=== PATIENT | male | born 1950 | race American Indian/Alaskan Native ===

== ENCOUNTER 2018-04-27 17:29 | Emergency (ER) | payer MEDICARE ==
--- NOTE | 2018-04-27 21:42 | Emergency Department Report ---
ED Psych HPI - General Chief Complaint: Medical Clearance Stated Complaint: MH Time Seen by Provider: 04/27/18 21:37 Source: patient, EMS Mode of arrival: Ambulatory Limitations: Altered Mental Status - History of Present Illness Initial Comments: 67-year-old -Indian male with a past medical history of anxiety, depression, kidney chronic kidney disease with dialysis Parkinson's disease memory loss schizophrenia and hyperlipidemia. Patient is brought here by home health care case manager Miss Meraz phone #[phone] reporting that he will not sleep he is co nstantly pacing and going to other clients rooms. She reports that she's had to constantly keep an eye on him. She reports there is no suicidal or homicidal ideation that she has been able to evaluate. Caregiver Miss Meraz reports that he was seen at [facility] yesterday and was placed on Risperdal 50 mg and she reports it did not help at all. Patient's sister is Ms. Figueroa's sign bridge at [phone]. Caregiver reports that he is followed by mental health provider in via Dr. Rodas which she reports she has been trying to get in touch with him for the last 2 weeks. His phone number is [phone]. Patient denies any other complaints. MD Complaint: altered mental status History of same: Yes Quality: constant Improves With: none Worsens With: none Associated Symptoms: insomnia Treatments Prior to Arrival: none - Related Data Home Medications Medication Instructions Recorded Confirmed Last Taken Tamsulosin [Flomax] 0.4 mg PO QPM 01/21/15 03/16/18 02/07/15 amLODIPine [Norvasc] 5 mg PO DAILY 01/21/15 03/16/18 02/07/15 Aspirin [Adult Aspirin] 81 mg PO QDAY 03/16/18 03/16/18 Unknown Carbidopa/Levodopa 10-100 [Sinemet] 1 each PO TID 03/16/18 03/16/18 Unknown Furosemide [Lasix] 20 mg PO QDAY 03/16/18 03/16/18 Unknown Hydralazine HCl 50 mg PO BID 03/16/18 03/16/18 Unknown ISOSORBIDE MONOnitrate [Imdur ER] 30 mg PO DAILY 03/16/18 03/16/18 Unknown metFORMIN XR [Glucophage XR] 500 mg PO QDAY 03/16/18 03/16/18 Unknown Previous Rx's Medication Instructions Recorded Last Taken Type Nitrofurantoin Monohyd/M-Cryst 100 mg PO BID #14 capsule 03/17/18 Unknown Rx [Macrobid 100 mg Capsule] Allergies Allergy/AdvReac Type Severity Reaction Status Date / Time Penicillins Allergy Unknown Verified 03/16/18 17:02 ED Review of Systems ROS: Stated complaint: MH Other details as noted in HPI Comment: All other systems reviewed and negative Psychiatric: other (insomnia) ED Past Medical Hx - Past Medical History Hx Hypertension: Yes Hx Diabetes: Yes Hx Renal Disease: Yes (CKD, MWF Dialysis) Hx Psychiatric Treatment: Yes (anxiety, depression) Additional medical history: Parkinson's disease. Memory Loss. Schizophrenia. Hyperlipidemia - Social History Smoking Status: Never Smoker Substance Use Type: None - Medications Home Medications: Home Medications Medication Instructions Recorded Confirmed Last Taken Type Tamsulosin [Flomax] 0.4 mg PO QPM 01/21/15 03/16/18 02/07/15 History amLODIPine [Norvasc] 5 mg PO DAILY 01/21/15 03/16/18 02/07/15 History Aspirin [Adult Aspirin] 81 mg PO QDAY 03/16/18 03/16/18 Unknown History Carbidopa/Levodopa 10-100 [Sinemet] 1 each PO TID 03/16/18 03/16/18 Unknown History Furosemide [Lasix] 20 mg PO QDAY 03/16/18 03/16/18 Unknown History Hydralazine HCl 50 mg PO BID 03/16/18 03/16/18 Unknown History ISOSORBIDE MONOnitrate [Imdur ER] 30 mg PO DAILY 03/16/18 03/16/18 Unknown History metFORMIN XR [Glucophage XR] 500 mg PO QDAY 03/16/18 03/16/18 Unknown History Nitrofurantoin Monohyd/M-Cryst 100 mg PO BID #14 capsule 03/17/18 Unknown Rx [Macrobid 100 mg Capsule] ED Physical Exam - General Limitations: Altered Mental Status General appearance: alert, in no apparent distress - Head Head exam: Present: atraumatic, normocephalic - Eye Eye exam: Present: EOMI - ENT ENT exam: Present: mucous membranes moist - Neck Neck exam: Present: normal inspection - Respiratory Respiratory exam: Present: normal lung sounds bilaterally. Absent: respiratory distress - Cardiovascular Cardiovascular Exam: Present: regular rate, normal rhythm. Absent: systolic murmur, diastolic murmur, rubs, gallop - GI/Abdominal GI/Abdominal exam: Present: soft, normal bowel sounds - Extremities Exam Extremities exam: Present: full ROM - Neurological Exam Neurological exam: Present: altered, normal gait - Psychiatric Psychiatric exam: Present: flat affect - Skin Skin exam: Present: warm, dry, intact, normal color. Absent: rash ED Course Vital Signs 04/27/18 18:28 Temperature 98.5 F Pulse Rate 88 Respiratory 16 Rate Blood Pressure 131/69 O2 Sat by Pulse 98 Oximetry ED Medical Decision Making - Lab Data Result diagrams: 04/27/18 21:46 04/27/18 21:46 Lab Results 04/27/18 04/27/18 04/27/18 Range/Units 21:46 21:46 21:46 WBC 10.1 (4.5-11.0) K/mm3 RBC 3.84 (3.65-5.03) M/mm3 Hgb 10.8 L (11.8-15.2) gm/dl Hct 34.2 L (35.5-45.6) % MCV 89 (84-94) fl MCH 28 (28-32) pg MCHC 32 (32-34) % RDW 19.6 H (13.2-15.2) % Plt Count 308 (140-440) K/mm3 Lymph % (Auto) 17.8 (13.4-35.0) % [place] % (Auto) 9.1 H (0.0-7.3) % Eos % (Auto) 5.2 H (0.0-4.3) % Baso % (Auto) 1.4 (0.0-1.8) % Lymph # 1.8 (1.2-5.4) K/mm3 [place] # 0.9 H (0.0-0.8) K/mm3 Eos # 0.5 H (0.0-0.4) K/mm3 Baso # 0.1 (0.0-0.1) K/mm3 Seg Neutrophils % 66.5 (40.0-70.0) % Seg Neutrophils # 6.7 (1.8-7.7) K/mm3 Sodium 133 L (137-145) mmol/L Potassium 3.6 (3.6-5.0) mmol/L Chloride 93.7 L (98-107) mmol/L Carbon Dioxide 23 (22-30) mmol/L Anion Gap 20 mmol/L BUN 18 (9-20) mg/dL Creatinine 4.5 H (0.8-1.5) mg/dL Estimated GFR 16 ml/min BUN/Creatinine Ratio 4 % Glucose 165 H (75-100) mg/dL Calcium 9.3 (8.4-10.2) mg/dL Total Bilirubin 0.50 (0.1-1.2) mg/dL AST 20 (5-40) units/L ALT < 5 L (7-56) units/L Alkaline Phosphatase 57 (35-129) units/L Total Protein 8.3 H (6.3-8.2) g/dL Albumin 3.6 L (3.9-5) g/dL Albumin/Globulin Ratio 0.8 % Acetaminophen < 5.0 L (10.0-30.0) ug/mL Plasma/Serum Alcohol (0-0.07) % 04/27/18 Range/Units 21:46 WBC (4.5-11.0) K/mm3 RBC (3.65-5.03) M/mm3 Hgb (11.8-15.2) gm/dl Hct (35.5-45.6) % MCV (84-94) fl MCH (28-32) pg MCHC (32-34) % RDW (13.2-15.2) % Plt Count (140-440) K/mm3 Lymph % (Auto) (13.4-35.0) % [place] % (Auto) (0.0-7.3) % Eos % (Auto) (0.0-4.3) % Baso % (Auto) (0.0-1.8) % Lymph # (1.2-5.4) K/mm3 [place] # (0.0-0.8) K/mm3 Eos # (0.0-0.4) K/mm3 Baso # (0.0-0.1) K/mm3 Seg Neutrophils % (40.0-70.0) % Seg Neutrophils # (1.8-7.7) K/mm3 Sodium (137-145) mmol/L Potassium (3.6-5.0) mmol/L Chloride (98-107) mmol/L Carbon Dioxide (22-30) mmol/L Anion Gap mmol/L BUN (9-20) mg/dL Creatinine (0.8-1.5) mg/dL Estimated GFR ml/min BUN/Creatinine Ratio % Glucose (75-100) mg/dL Calcium (8.4-10.2) mg/dL Total Bilirubin (0.1-1.2) mg/dL AST (5-40) units/L ALT (7-56) units/L Alkaline Phosphatase (35-129) units/L Total Protein (6.3-8.2) g/dL Albumin (3.9-5) g/dL Albumin/Globulin Ratio % Acetaminophen (10.0-30.0) ug/mL Plasma/Serum Alcohol < 0.01 (0-0.07) % - Medical Decision Making Patient has been evaluated by this provider in fast track. Psychiatric protocol has been in place. I discussed with charge nurse Marisela Mdaera regarding patient needs to be evaluated in the main ER. Psychiatric protocol was in place. Mental health provider evaluated patient that the patient is safe to go home but needs close follow-up with mental health. Mental health provider discuss with his care provider Ms. Meraz and discuss that should he was sent home paperwork for referrals to mental health. Patient was not able to give any urine as he is not able to follow instructions very well. Discussed with Ms. Meraz to continue with all his chronic medication. Critical care attestation.: If time is entered above; I have spent that time in minutes in the direct care of this critically ill patient, excluding procedure time. ED Disposition Clinical Impression: Parkinsons disease, Memory loss Disposition: DC-01 TO HOME OR SELFCARE Is pt being admited?: No Does the pt Need Aspirin: No Condition: Stable Instructions: Insomnia (ED), Parkinson's Disease (ED), Self-Care Measures with a Chronic Disease (ED) Additional Instructions: Please continue with chronic medication as prescribed by your outpatient providers. It is very important for you to follow up mental health opiate m nichole. We have given a handout for referrals. Referrals: PRIMARY CARE, [Primary Care Provider] - 3-5 Days [facility] [Outside] - 3-5 Days [facility] [Outside] - 3-5 Days Your,Mental Health Provider [Other] - 3-5 Days
[2018-04-27 21:58] LABS: Basophils # (Auto) 0.1 K/mm3 (0.0-0.1); Basophils % (Auto) 1.4 % (0.0-1.8); Eosinophils # (Auto) 0.5 K/mm3 (0.0-0.4); Eosinophils % (Auto) 5.2 % (0.0-4.3); Hematocrit 34.2 % (35.5-45.6); Hemoglobin 10.8 gm/dl (11.8-15.2); Lymphocytes # (Auto) 1.8 K/mm3 (1.2-5.4); Lymphocytes % (Auto) 17.8 % (13.4-35.0); Mean Corpuscular HGB Conc 32 % (32-34); Mean Corpuscular Volume 89 fl (84-94); Monocytes # (Auto) 0.9 K/mm3 (0.0-0.8); Monocytes % (Auto) 9.1 % (0.0-7.3); Red Blood Count 3.84 M/mm3 (3.65-5.03); Red Cell Distribution Width 19.6 % (13.2-15.2)
[2018-04-27 22:00] LABS: Platelet Count 308 K/mm3 (140-440)
[2018-04-27 22:34] LABS: Albumin 3.6 g/dL (3.9-5); BUN/Creatinine Ratio 4; Blood Urea Nitrogen 18 mg/dL (9-20); Calcium 9.3 mg/dL (8.4-10.2); Hemolysis Index 67
[2018-04-27 22:39] LABS: Alanine Aminotransferase < 5 units/L (7-56)
[2018-04-28 08:38] VITALS: BP 118/77
== END 2018-04-28 12:00 | disposition home or self-care (01) ==
LOC: ED 17:29
DX: G20 Parkinson's disease (principal); R41.3 Other amnesia; F41.9 Anxiety disorder, unspecified; F32.9 Major depressive disorder, single episode, unspecified; E78.5 Hyperlipidemia, unspecified; G47.00 Insomnia, unspecified; F20.9 Schizophrenia, unspecified; I12.9 Hypertensive chronic kidney disease with stage 1 through stage 4 chronic kidney disease, or unspecified chronic kidney disease; E11.22 Type 2 diabetes mellitus with diabetic chronic kidney disease; N18.9 Chronic kidney disease, unspecified; Z99.2 Dependence on renal dialysis; Z88.0 Allergy status to penicillin; Z79.82 Long term (current) use of aspirin
CPT/HCPCS: 36415; 80053; 82962; 85025; 99283; G0480; 80320; 99284

== ENCOUNTER 2018-09-29 08:32 | Inpatient (IN) | payer MEDICARE ==
[2018-09-29 08:56] LABS: Basophils # (Auto) 0.1 K/mm3 (0.0-0.1); Basophils % (Auto) 0.9 % (0.0-1.8); Eosinophils % (Auto) 0.6 % (0.0-4.3); Hematocrit 32.2 % (35.5-45.6); Hemoglobin 10.3 gm/dl (11.8-15.2); Lymphocytes # (Auto) 1.1 K/mm3 (1.2-5.4); Lymphocytes % (Auto) 15.1 % (13.4-35.0); Mean Corpuscular HGB Conc 32 % (32-34); Mean Corpuscular Volume 88 fl (84-94); Monocytes # (Auto) 0.6 K/mm3 (0.0-0.8); Monocytes % (Auto) 7.8 % (0.0-7.3); Platelet Count 195 K/mm3 (140-440); Red Blood Count 3.65 M/mm3 (3.65-5.03); Red Cell Distribution Width 15.6 % (13.2-15.2)
[2018-09-29 09:07] LABS: Calcium 9.4 mg/dL (8.4-10.2)
[2018-09-29] MEDS ORDERED: NACL 0.9% 500 ML 500 ML IV ONE ×2 (09:08→10:24)
--- NOTE | 2018-09-29 09:20 | Emergency Department Report ---
ED Altered Mental Status HPI - General Chief Complaint: Altered Mental Status Stated Complaint: LATHARGIC/LOW BLOOD PRESSURE Time Seen by Provider: 09/29/18 09:08 Source: EMS Mode of arrival: Stretcher Limitations: Altered Mental Status - History of Present Illness Initial Comments: Mr. Salinas is a 68-year-old male with history of end-stage renal disease hemodialysis Friday, hypertension, diabetes mellitus, dementia, systolic heart failure, schizophrenia, dyslipidemia who presents from personal long term with altered mental status and lethargy. He was only oriented to name today. He was lethargic with hypotension noted per EMS blood pressure 70s over 40s. The caregiver called nurse informed us that he was normal at 0700 before going to a day care program today. He fell at the program. Hypotension was noted at the daycare program. Mr. Salnias currently uses his head to communicate yes or no. He is able to state his name full name Jose Salinas. He denies any physical complaints. PCP Dr. Delcid [place] [address], [place], [place] Complaint: altered mental status -: This morning Severity: severe Consistency of Symptoms: waxing and waning Associated Symptoms: denies other symptoms - Related Data Home Medications Medication Instructions Recorded Confirmed Last Taken Tamsulosin [Flomax] 0.4 mg PO QPM 01/21/15 03/16/18 02/07/15 amLODIPine [Norvasc] 5 mg PO DAILY 01/21/15 03/16/18 02/07/15 Aspirin [Adult Aspirin] 81 mg PO QDAY 03/16/18 03/16/18 Unknown Carbidopa/Levodopa 10-100 [Sinemet] 1 each PO TID 03/16/18 03/16/18 Unknown Furosemide [Lasix] 20 mg PO QDAY 03/16/18 03/16/18 Unknown Hydralazine HCl 50 mg PO BID 03/16/18 03/16/18 Unknown ISOSORBIDE MONOnitrate [Imdur ER] 30 mg PO DAILY 03/16/18 03/16/18 Unknown metFORMIN XR [Glucophage XR] 500 mg PO QDAY 03/16/18 03/16/18 Unknown Previous Rx's Medication Instructions Recorded Last Taken Type Nitrofurantoin Monohyd/M-Cryst 100 mg PO BID #14 capsule 03/17/18 Unknown Rx [Macrobid 100 mg Capsule] Allergies Allergy/AdvReac Type Severity Reaction Status Date / Time Penicillins Allergy Unknown Verified 03/16/18 17:02 ED Review of Systems ROS: Stated complaint: LATHARGIC/LOW BLOOD PRESSURE Other details as noted in HPI Comment: Unobtainable due to pts medical conditions (altered mental status d ementia but says no to all questions) ED Past Medical Hx - Past Medical History Previous Medical History?: Yes Hx Hypertension: Yes Hx Diabetes: Yes Hx Renal Disease: Yes (CKD, MWF Dialysis) Hx Psychiatric Treatment: Yes (anxiety, depression) Hx Dementia: Yes Additional medical history: Parkinson's disease. Memory Loss. Schizophrenia. Hyperlipidemia - Social History Smoking Status: Unknown if ever smoked - Medications Home Medications: Home Medications Medication Instructions Recorded Confirmed Last Taken Type Tamsulosin [Flomax] 0.4 mg PO QPM 01/21/15 03/16/18 02/07/15 History amLODIPine [Norvasc] 5 mg PO DAILY 01/21/15 03/16/18 02/07/15 History Aspirin [Adult Aspirin] 81 mg PO QDAY 03/16/18 03/16/18 Unknown History Carbidopa/Levodopa 10-100 [Sinemet] 1 each PO TID 03/16/18 03/16/18 Unknown History Furosemide [Lasix] 20 mg PO QDAY 03/16/18 03/16/18 Unknown History Hydralazine HCl 50 mg PO BID 03/16/18 03/16/18 Unknown History ISOSORBIDE MONOnitrate [Imdur ER] 30 mg PO DAILY 03/16/18 03/16/18 Unknown History metFORMIN XR [Glucophage XR] 500 mg PO QDAY 03/16/18 03/16/18 Unknown History Nitrofurantoin Monohyd/M-Cryst 100 mg PO BID #14 capsule 03/17/18 Unknown Rx [Macrobid 100 mg Capsule] ED Physical Exam - General Limitations: Altered Mental Status General appearance: alert, in no apparent distress, lethargic, other (states name, nods yes or no) - Head Head exam: Present: atraumatic, normocephalic - Eye Eye exam: Present: normal appearance - ENT ENT exam: Present: mucous membranes dry - Neck Neck exam: Present: normal inspection, full ROM - Respiratory Respiratory exam: Present: normal lung sounds bilaterally. Absent: respiratory distress, wheezes, rales, rhonchi - Cardiovascular Cardiovascular Exam: Present: regular rate, normal rhythm, normal heart sounds. Absent: rubs, gallop - GI/Abdominal GI/Abdominal exam: Present: soft, normal bowel sounds. Absent: distended, tenderness, guarding, rebound - Rectal Rectal exam: Present: deferred - Neurological Exam Neurological exam: Present: alert, other (oriented to name) - Expanded Neurological Exam Expanded Patient oriented to: Present: person Speech: Present: expressive aphasia Cranial nerves: EOM's Intact: Normal, Gag Reflex: Normal Sensory exam: Upper Extremity Light Touch: Normal Motor strength exam: RUE: 5, LUE: 5, RLE: 5, LLE: 5 Best Eye Response ([place]): (4) open spontaneously Best Motor Response ([place]): (6) obeys commands Best Verbal Response ([place]): (4) confused conversation [place] Total: 14 - Psychiatric Psychiatric exam: Present: normal mood, flat affect - Skin Skin exam: Present: warm, dry, intact, normal color. Absent: rash ED Course Vital Signs 09/29/18 09/29/18 09/29/18 08:36 08:38 08:45 Temperature 97.5 F L Pulse Rate 87 84 Respiratory 10 L 27 H Rate Blood Pressure 110/65 O2 Sat by Pulse 97 62 L Oximetry 09/29/18 09/29/18 09/29/18 09:00 09:30 10:00 Temperature Pulse Rate 76 78 73 Respiratory 15 14 13 Rate Blood Pressure 96/58 92/58 94/56 O2 Sat by Pulse 99 99 100 Oximetry 09/29/18 09/29/18 10:55 11:00 Temperature Pulse Rate 60 77 Respiratory 15 Rate Blood Pressure 105/59 94/64 O2 Sat by Pulse Oximetry - Lab Data Result diagrams: 09/29/18 08:49 09/29/18 09:44 Lab Results 09/29/18 09/29/18 09/29/18 Range/Units 08:49 08:49 08:51 WBC 7.6 (4.5-11.0) K/mm3 RBC 3.65 (3.65-5.03) M/mm3 Hgb 10.3 L (11.8-15.2) gm/dl Hct 32.2 L (35.5-45.6) % MCV 88 (84-94) fl MCH 28 (28-32) pg MCHC 32 (32-34) % RDW 15.6 H (13.2-15.2) % Plt Count 195 (140-440) K/mm3 Lymph % (Auto) 15.1 (13.4-35.0) % [place] % (Auto) 7.8 H (0.0-7.3) % Eos % (Auto) 0.6 (0.0-4.3) % Baso % (Auto) 0.9 (0.0-1.8) % Lymph # 1.1 L (1.2-5.4) K/mm3 [place] # 0.6 (0.0-0.8) K/mm3 Eos # 0.0 (0.0-0.4) K/mm3 Baso # 0.1 (0.0-0.1) K/mm3 Seg Neutrophils % 75.6 H (40.0-70.0) % Seg Neutrophils # 5.7 (1.8-7.7) K/mm3 Sodium 137 (137-145) mmol/L Potassium 4.3 (3.6-5.0) mmol/L Chloride 94.4 L (98-107) mmol/L Carbon Dioxide 26 (22-30) mmol/L Anion Gap 21 mmol/L BUN 33 H (9-20) mg/dL Creatinine 6.0 H (0.8-1.5) mg/dL Estimated GFR 11 ml/min BUN/Creatinine Ratio 6 % Glucose 148 H (75-100) mg/dL POC Glucose 132 H (70-105) Lactic Acid (0.7-2.0) mmol/L Calcium 9.4 (8.4-10.2) mg/dL Total Bilirubin (0.1-1.2) mg/dL AST (5-40) units/L ALT (7-56) units/L Alkaline Phosphatase (35-129) units/L Troponin T (0.00-0.029) ng/mL Total Protein (6.3-8.2) g/dL Albumin (3.9-5) g/dL Albumin/Globulin Ratio % TSH (0.270-4.200) mlU/mL 06/18/19 06/18/19 06/18/19 Range/Units 09:44 09:44 10:58 WBC (4.5-11.0) K/mm3 RBC (3.65-5.03) M/mm3 Hgb (11.8-15.2) gm/dl Hct (35.5-45.6) % MCV (84-94) fl MCH (28-32) pg MCHC (32-34) % RDW (13.2-15.2) % Plt Count (140-440) K/mm3 Lymph % (Auto) (13.4-35.0) % [place] % (Auto) (0.0-7.3) % Eos % (Auto) (0.0-4.3) % Baso % (Auto) (0.0-1.8) % Lymph # (1.2-5.4) K/mm3 [place] # (0.0-0.8) K/mm3 Eos # (0.0-0.4) K/mm3 Baso # (0.0-0.1) K/mm3 Seg Neutrophils % (40.0-70.0) % Seg Neutrophils # (1.8-7.7) K/mm3 Sodium 138 (137-145) mmol/L Potassium 4.1 (3.6-5.0) mmol/L Chloride 95.3 L (98-107) mmol/L Carbon Dioxide 24 (22-30) mmol/L Anion Gap 23 mmol/L BUN 33 H (9-20) mg/dL Creatinine 5.8 H (0.8-1.5) mg/dL Estimated GFR 12 ml/min BUN/Creatinine Ratio 6 % Glucose 131 H (75-100) mg/dL POC Glucose (70-105) Lactic Acid 2.40 H* (0.7-2.0) mmol/L Calcium 9.3 (8.4-10.2) mg/dL Total Bilirubin 0.70 (0.1-1.2) mg/dL AST 24 (5-40) units/L ALT < 5 L (7-56) units/L Alkaline Phosphatase 58 (35-129) units/L Troponin T 0.098 H (0.00-0.029) ng/mL Total Protein 8.6 H (6.3-8.2) g/dL Albumin 3.8 L (3.9-5) g/dL Albumin/Globulin Ratio 0.8 % TSH 6.680 H (0.270-4.200) mlU/mL 09/29/18 11:38 EKG obtained 849 Normal sinus rhythm rate 75 beats a minute normal axis interval +PVCs +LVH no significant ST elevation - Radiology Data Radiology results: report reviewed CT head fluid level in the left frontal sinus may reflect acute sinusitis AP Portable chest unremarkable - Medical Decision Making Mr. Salinas presents with lethargy and hypotension which led to fall at adult day care program. DDX: polypharmacy, inadvertent medication administration, sepsis Antibiotics provided in the ED. [facility] Critical care attestation.: If time is entered above; I have spent that time in minutes in the direct care of this critically ill patient, excluding procedure time. ED Disposition Clinical Impression: Acute metabolic encephalopathy Disposition: OP ADMIT IP TO THIS HOSP Is pt being admited?: Yes Does the pt Need Aspirin: No Condition: Stable
--- NOTE | 2018-09-29 09:29 | XRay Report ---
AP CHEST: HISTORY: Altered mental status, hypotension AP view of the chest demonstrates a normal mediastinal and cardiac contour with clear lungs and normal bony and soft tissue structures. IMPRESSION: Unremarkable AP chest.
[2018-09-29 10:39] LABS: Alanine Aminotransferase < 5 units/L (7-56); Albumin 3.8 g/dL (3.9-5); BUN/Creatinine Ratio 6; Blood Urea Nitrogen 33 mg/dL (9-20); Calcium 9.3 mg/dL (8.4-10.2); Hemolysis Index 9
[2018-09-29] MEDS: AZACTAM/NS 1 GM/50 ML 1 GM/50 ML VIAL IV SCH ×2 (11:03→18:12)
--- NOTE | 2018-09-29 11:26 | Cat Scan Report ---
PROCEDURE: CT HEAD/BRAIN WO CON TECHNIQUE: Computerized tomography of the head was performed without contrast material. CT DOSE LENGTH PRODUCT: 920.5 mGycm HISTORY: AMS COMPARISONS: None . FINDINGS: Cerebrovascular atherosclerotic calcification is present in the skull base arteries. Surgical graft left orbit floor. Slight mucosal thickening left maxillary sinus. Moderate mucosal thickening left ethmoid sinus. Mucosal thickening with fluid level left frontal sinus. Mastoid air cells and middle ear cavities are clear. Chronic appearing lacunar infarct right caudate head and left lateral basal ganglia. Bone windows demonstrate no acute fracture. There is ventricular and sulcal prominence compatible with age-appropriate global cerebrocortical atr ophy. The brain contains no mass, mass effect, hemorrhage, or acute infarct. There is no extra-axial intracranial bleed, brain bleed, or midline shift. IMPRESSION: No acute CVA, intracranial bleed, or brain mass Fluid level left frontal sinus may reflect acute sinusitis Chronic appearing lacunar infarcts right caudate head and left lateral basal ganglia Prior left orbital floor surgery This document is electronically signed by Don Gordillo MD., September 29 2018 11:24:35 AM ET
[2018-09-29] MEDS ORDERED: VANCOMYCIN 1,500 MG in NACL 0.9% 500 ML 500 ML IV ONE (11:30)
--- NOTE | 2018-09-29 11:40 | Cat Scan Report ---
PROCEDURE: CT ABDOMEN PELVIS WO CON TECHNIQUE: CT examination of the abdomen without IV contrast CT examination of the pelvis without IV contrast HISTORY: hypotension COMPARISONS: None FINDINGS: Patient arm in the diagnostic [id number] degrades image quality and limits the examination. Minimal scar versus atelectasis both lung bases posteriorly. Degenerative change in the regional skel eton. No acute fracture. Coronary artery calcification. Cardiac size slightly enlarged. Normal noncontrast appearance of the liver, gallbladder, adrenals, pancreas, and spleen. Normal calib er abdominal aorta with moderate calcified atherosclerotic plaque. Normal caliber IVC. A nonspecific, smoothly marginated, low density, simple appearing left renal lesion is statistically most likely a cyst. Nonspecific slight bilateral hydronephrosis. No evidence of renal or ureteral calculus. Diffuse mural thickening in the urinary bladder. Prominent prostate with mass effect on urinary bladder base. Prom inent prostate median lobe. Normal-appearing seminal vesicles. Small fat-containing umbilical hernia. No evidence of inguinal hernia. No retroperitoneal adenopathy. No evidence of mesenteric mass. Normal-appearing stomach and duodenum. No small bowel distention in the abdomen and pelvis. No pelvic free fluid. No gross ascites or free air. Normal-appearing terminal ileum and appendix. Prominent stool from cecum to rectum may reflect constipation. IMPRESSION: Prominent stool from cecum to rectum may reflect constipation Prominent prostate with mass effect on urinary bladder base. This may account for urinary bladder dif fuse wall thickening and mild bilateral hydronephrosis. Differential for urinary bladder wall thicken ing is edema, inflammation, or cystitis. Neoplastic infiltration considered less likely given nonfoca l thickening. Minimal scar versus atelectasis both lung bases posteriorly Slight cardiomegaly with coronary artery calcification This document is electronically signed by Don Gordillo MD., September 29 2018 11:37:53 AM ET
[2018-09-29 11:45] LABS: Bilirubin,Urine NEG (Negative); Blood,Urine SM (Negative); Color,Urine Yellow (Yellow); Mucus,Urine FEW /HPF; Urobilinogen,Urine < 2.0 mg/dL (<2.0)
[2018-09-29] MEDS ORDERED: NARCAN 0.4 MG/1 ML IV STA (13:17)
[2018-09-29] MEDS ORDERED: NARCAN 0.4 MG/1 ML ONE (14:19)
[2018-09-29] MEDS ORDERED: TYLENOL PO PRN (20:59)
[2018-09-29] MEDS ORDERED: SODIUM CHLORIDE FLUSH SYRINGE 10 ML IV PRN (20:59)
[2018-09-29] MEDS ORDERED: ZOFRAN IV PRN (20:59)
[2018-09-29] MEDS ORDERED: DILAUDID IV PRN (20:59)
[2018-09-29] MEDS ORDERED: IMDUR PO SCH (21:00)
[2018-09-29] MEDS ORDERED: LASIX PO SCH (21:00)
[2018-09-29] MEDS: ATARAX PO SCH (21:49)
[2018-09-29] MEDS: HEPARIN SUB-Q SCH (21:49)
[2018-09-29] MEDS: FLOMAX PO SCH (21:49)
[2018-09-29] MEDS: SODIUM CHLORIDE FLUSH SYRINGE 10 ML IV SCH (21:50)
--- NOTE | 2018-09-29 23:52 | Consultation ---
History of Present Illness - Reason for Consult Consult date: 09/29/18 end stage renal disease - History of Present Illness The patient is a 68 YO male with history significant for HTN, DM, HLD, ESRD on hemodialysis (MWF), Dementia, Systolic heart failure and Schizophrenia who presented to [facility] ED from personal residential with altered mental status and lethargy. Patient is very poor historian and no family member at the bedside. He was lethargic with hypotension noted per EMS with blood pressure of 70s/40s. He had a fall at the daycare program. He denies any physical complaints. His N ephrologist is . Nephrology was consulted to manage ESRD. Past History Past Medical History: diabetes, dialysis, ESRD, heart failure, hypertension, hy perlipidemia, other (BPH) Medications and Allergies Allergies Allergy/AdvReac Type Severity Reaction Status Date / Time Penicillins Allergy Unknown Verified 03/16/18 17:02 Home Medications Medication Instructions Recorded Confirmed Last Taken Type Tamsulosin [Flomax] 0.4 mg PO DAILY 01/21/15 09/29/18 02/07/15 History Carbidopa/Levodopa 10-100 [Sinemet] 1 each PO TIDAC 03/16/18 09/29/18 Unknown History Furosemide [Lasix] 20 mg PO QDAY 03/16/18 09/29/18 Unknown History ISOSORBIDE MONOnitrate [Imdur ER] 30 mg PO DAILY 03/16/18 09/29/18 Unknown History Hydroxyzine HCl [hydrOXYzine] 50 mg PO BID 09/29/18 09/29/18 Unknown History Levothyroxine [Synthroid] 25 mcg PO QDAY 09/29/18 09/29/18 Unknown History OLANZapine [Zyprexa] 20 mg PO DAILY 09/29/18 09/29/18 Unknown History clonazePAM [ Klonopin] 0.5 mg PO DAILY 09/29/18 09/29/18 Unknown History Active Meds: Active Medications Acetaminophen (Tylenol) 650 mg PO Q4H PRN PRN Reason: Pain MILD(1-3)/Fever >100.5/[place] Carbidopa/Levodopa (Sinemet) 1 each PO TIDAC [facility] Clonazepam (Klonopin) 0.5 mg PO DAILY [facility] Last Admin: 09/29/18 21:49 Dose: 0.5 mg Documented by: Furosemide (Lasix) 20 mg PO QDAY [facility] Last Admin: 09/29/18 21:49 Dose: 20 mg Documented by: Heparin Sodium (Porcine) (Heparin) 5,000 unit SUB-Q Q12HR [facility] Last Admin: 09/29/18 21:49 Dose: 5,000 unit Documented by: Hydromorphone HCl (Dilaudid) 0.25 mg IV Q3H PRN PRN Reason: Pain, Moderate (4-6) Hydroxyzine HCl (Atarax) 50 mg PO BID [facility] Last Admin: 09/29/18 21:49 Dose: 50 mg Documented by: Aztreonam (Azactam/Ns 1 Gm/50 Ml) 1 gm in 50 mls @ 50 mls/hr IV Q8H [facility]; Protocol Last Admin: 09/29/18 18:12 Dose: 50 mls/hr Documented by: Isosorbide Mononitrate (Imdur) 30 mg PO DAILY [facility] Last Admin: 09/29/18 21:48 Dose: 30 mg Documented by: Levothyroxine Sodium (Synthroid) 25 mcg PO QDAY@0600 [facility] Olanzapine (Zyprexa) 20 mg PO DAILY [facility] Last Admin: 09/29/18 21:48 Dose: 20 mg Documented by: Ondansetron HCl (Zofran) 4 mg IV Q8H PRN PRN Reason: Nausea And Vomiting Sodium Chloride (Sodium Chloride Flush Syringe 10 Ml) 10 ml IV BID [facility] Last Admin: 09/29/18 21:50 Dose: 10 ml Documented by: Sodium Chloride (Sodium Chloride Flush Syringe 10 Ml) 10 ml IV PRN PRN PRN Reason: LINE FLUSH Tamsulosin HCl (Flomax) 0.4 mg PO DAILY [facility] Last Admin: 09/29/18 21:49 Dose: 0.4 mg Documented by: Review of Systems ROS unobtainable: due to mental status Exam - Vital Signs Vital signs: Vital Signs Pulse Resp BP Pulse Ox 87 10 L 110/65 97 09/29/18 08:36 09/29/18 08:36 09/29/18 08:36 09/29/18 08:36 - General Appearance General appearance: well-developed, well-nourished, appears stated age, other (not in distress) EENT: ATNC, PERRL, mucous membranes moist Neck: Present: trachea midline Respiratory: Clear to Ascultation Heart: regular, S1S2, no murmurs Gastrointestinal: Present: normoactive bowel sounds. Absent: tenderness, distended Integumentary: no rash Neurologic: confused, disoriented, other (able to tell his name) Musculoskeletal: Present: other (no edema, L arm AVF) Results - Lab Results 09/29/18 08:49 09/29/18 09:44 Most recent lab results Calcium 9.3 mg/dL (8.4-10.2) 09/29/18 09:44 Assessment and Plan 1. ESRD: Continue hemodialysis three times a week, MWF schedule. HD tomorrow. 2. Hypotension: BP is improving. Monitor. 3. Suspected sepsis. 4. Anemia: Epogen with HD. 5. Encephalopathy. 6. DM type 2. 7. Parkinson's disease.
[2018-09-30] MEDS: AZACTAM/NS 1 GM/50 ML 1 GM/50 ML VIAL IV SCH ×2 (03:14→10:12)
--- NOTE | 2018-09-30 05:51 | Event Note ---
Date: 09/29/18 See H/p in reports AMS Hypotension ESRD on HD Parkinsonism
[2018-09-30] MEDS ORDERED: SYNTHROID PO SCH (06:00)
--- NOTE | 2018-09-30 06:21 | History and Physical Report ---
CHIEF COMPLAINT: Altered sensorium since a.m. HISTORY OF PRESENT ILLNESS: A 68-year-old male with history of end-stage renal disease, hypertension and parkinsonism and diabetes, including systolic heart failure and schizophrenia sent from personal shelter for altered sensorium and low blood pressure. No fever. The patient was having low blood pressure and had a fall. The fall was secondary to low blood pressure. The patient was sent by EMS to the Emergency Room for evaluation. No fever. The patient gets hemodialysis on Friday, Friday, Fridays. Follows with Dr. Del Rio. PAST MEDICAL HISTORY: As mentioned, hypertension, BPH, parkinsonism, coronary artery disease and type 2 diabetes. PAST SURGICAL HISTORY: AV graft. SOCIAL HISTORY: Lives in a personal shelter. Does not smoke. FAMILY HISTORY: Hypertension. CURRENT MEDICATIONS: Amlodipine 5 mg once a day, Sinemet 1 tablet 3 times a day, Lasix 20 mg once a day, isosorbide 30 mg once a day, metformin 500 once a day. REVIEW OF SYSTEMS: Significant for low blood pressure and altered sensorium. No fever. Otherwise, 14-point review of systems negative. PHYSICAL EXAMINATION: GENERAL: Elderly male, lethargic. VITAL SIGNS: Initial blood pressure was in the 70s, but in the Emergency Room, the blood pressure came up to 96/58. Temperature is 97.5, pulse is 87, respiratory rate is 16. HEENT: Unremarkable. Pupils equal and reactive. NECK: Supple, no lymphadenopathy, no thyromegaly. LUNGS: Clear to auscultation and percussion. Good air entry. CARDIOVASCULAR: S1, S2 heard. No gallop, no murmur, no rub. Apical impulse in left fifth intercostal space and midclavicular line. ABDOMEN: Soft and benign. No hepatosplenomegaly. No guarding, no rigidity. Hernial orifices are normal. EXTREMITIES: Good pedal pulses. No pedal edema. CENTRAL NERVOUS SYSTEM: Lethargic. Responds to name, not to place and time. No focal deficits. SKIN: Normal. LABORATORY DATA: Significant for white count of 7600, H and H of 10.3 and 32.2, platelet count is 195,000. Sodium is 138, potassium is 4.1, chloride is 95.3, BUN and creatinine is 33 and 5.8, glucose is 131. A1c is 4.8. Troponin is 0.098. Total protein is 8.6, albumin is 3.8. TSH is 6.68. Urine is normal. IMAGING STUDIES: EKG shows normal sinus rhythm, 75 beats per minute, PVCs, LVH. No significant ST elevation. Chest x-ray shows no acute findings. CT head shows no acute findings. CT abdomen and pelvis shows prominent stool from cecum to rectum, may reflect constipation. ASSESSMENT AND PLAN: 1. Acute encephalopathy secondary to hypotension and uremia. The patient to get hemodialysis today or tomorrow. Hold Lasix and isosorbide because of the low blood pressure for the time being. No signs of sepsis or infection. 2. Hypertension. We will hold antihypertensives. 3. Parkinsonism. Continue Sinemet. 4. Type 2 diabetes. Continue coverage. The patient's A1c is 4.8, which shows good control of blood pressure. 5. Hypothyroidism. Continue levothyroxine. TSH slightly high. We will adjust the dosage to 50 mcg of levothyroxine from 25 mcg. 6. End-stage renal disease, on hemodialysis. Nephrology consulted. 7. Possible sepsis. The patient started on aztreonam 1 g IV piggyback q.8. Antibiotics may be deescalated if no signs of infection are found, if blood cultures are negative. 8. Deep venous thrombosis prophylaxis, heparin 5000 q.12 and gastrointestinal prophylaxis. In summary, the patient has hypertension, acute encephalopathy, end-stage renal disease, hypothyroidism and parkinsonism. JOB# [id number] MARY KATE/PANCHO CALDERA
[2018-09-30 06:36] LABS: Basophils # (Auto) 0.1 K/mm3 (0.0-0.1); Basophils % (Auto) 1.2 % (0.0-1.8); Eosinophils # (Auto) 0.1 K/mm3 (0.0-0.4); Eosinophils % (Auto) 1.2 % (0.0-4.3); Hematocrit 30.1 % (35.5-45.6); Hemoglobin 9.5 gm/dl (11.8-15.2); Mean Corpuscular HGB Conc 32 % (32-34); Mean Corpuscular Volume 88 fl (84-94); Monocytes # (Auto) 0.4 K/mm3 (0.0-0.8); Monocytes % (Auto) 8.5 % (0.0-7.3); Platelet Count 172 K/mm3 (140-440); Red Blood Count 3.42 M/mm3 (3.65-5.03); Red Cell Distribution Width 15.5 % (13.2-15.2)
[2018-09-30 06:51] LABS: Albumin 3.1 g/dL (3.9-5); BUN/Creatinine Ratio 5; Blood Urea Nitrogen 38 mg/dL (9-20); Calcium 9.3 mg/dL (8.4-10.2); Hemolysis Index 27
[2018-09-30 06:52] LABS: Alanine Aminotransferase < 5 units/L (7-56)
[2018-09-30] MEDS: HumaLOG SUB-Q SCH ×4 (08:33→22:00)
[2018-09-30] MEDS: SINEMET PO SCH ×3 (08:55→17:23)
[2018-09-30] MEDS: HEPARIN SUB-Q SCH ×2 (09:02→21:52)
[2018-09-30] MEDS: ATARAX PO SCH (09:03)
[2018-09-30] MEDS: FLOMAX PO SCH (09:03)
[2018-09-30] MEDS: SODIUM CHLORIDE FLUSH SYRINGE 10 ML IV SCH ×2 (09:12→22:03)
[2018-09-30] MEDS ORDERED: NACL 0.9% 100 ML IV PRN (10:33)
[2018-09-30] MEDS ORDERED: PROCRIT SUB-Q PRN (10:33)
[2018-09-30] MEDS ORDERED: HEPARIN 10,000 UNITS/10 ML IV PRN ×2 (10:33)
[2018-09-30 14:44] LABS: Hepatitis C Virus Antibody Non-Reactive (NonReactive)
--- NOTE | 2018-09-30 14:59 | Progress Note ---
Assessment and Plan Assessment and plan: Patient is a 68 yo man with from [facility] with history of ESRD on HD MWF, hypertension, DM type 2, Dementia, systolic heart failure, Schizophrenia and dyslipidemia who presented with AMS, lethargy and hypotension * CT abd/pelvis with contrast Impression: Prominent stool from cecum to rectum may reflect constipation * CT head without contrast Impression: no acute CVA, left frontal sinus may reflect acute sinusitis, chronic appearing lacunar infarcts right caudate head and left lateral basal ganglia, prior left orbital floor surgery, * pCXR unremarkable Hypotension; adjust with HD ESRD on HD: Nephrology consulted Hypothyroidism, worse: d/w Ms. Clemens admissions specialist, and will increase the dose of Levothyroxine Constipation: give Miralax daily, add dulcolax suppository x 1 Acute metabolic encephalopathy Prelim GPC in clusters 1 out of 2 bottle: stop Aztreonam and start empiric give iv vancomycin which he received yesterday in ED. Acute sinusitis: add Azithromycin +iv vancomycin, PCN allergy History Interval history: Patient was seen and examined. Follow-up on current diagnosis of AMS. No overnight events reported to me. Imaging, nursing note, chart, labs and old chart reviewed. Discussed with caregiver over the phone and relative at bedside. Gen: WDWN, NAD, Awake, Alert, Orientated HEENT: NCAT, EOMI, PERRL, OP Clear Neck: supple, no adenopathy, no thyromegaly, no JVD CVS/Heart: RRR, normal S1S2, pulses present bilaterally Chest/Lungs: CTA B, Symmetrical chest expansion, good air entry bilaterally GI/Abdomen: soft, NTND, good bowel sounds, no guarding or rebound /Bladder: no suprapubic tenderness, no CVA or paraspinal tenderness Extermity/Skin: no c/c/e, no obvious rash MSK: FROM x 4 Neuro: CN 2-12 grossly intact, no new focal deficits Psych: calm Hospitalist Physical - Constitutional Vitals: Temp Pulse Resp BP Pulse Ox 98.1 F 84 18 125/72 99 09/30/18 11:00 09/30/18 14:29 09/30/18 11:00 09/30/18 13:30 09/30/18 04:52 Results - Labs CBC & Chem 7: 09/30/18 05:07 09/30/18 05:07 Labs: Laboratory Last Values WBC 4.8 K/mm3 (4.5-11.0) 09/30/18 05:07 RBC 3.42 M/mm3 (3.65-5.03) L 09/30/18 05:07 Hgb 9.5 gm/dl (11.8-15.2) L 09/30/18 05:07 Hct 30.1 % (35.5-45.6) L 09/30/18 05:07 MCV 88 fl (84-94) 09/30/18 05:07 MCH 28 pg (28-32) 09/30/18 05:07 MCHC 32 % (32-34) 09/30/18 05:07 RDW 15.5 % (13.2-15.2) H 09/30/18 05:07 Plt Count 172 K/mm3 (140-440) 09/30/18 05:07 Lymph % (Auto) 21.0 % (13.4-35.0) 09/30/18 05:07 [place] % (Auto) 8.5 % (0.0-7.3) H 09/30/18 05:07 Eos % (Auto) 1.2 % (0.0-4.3) 09/30/18 05:07 Baso % (Auto) 1.2 % (0.0-1.8) 09/30/18 05:07 Lymph # 1.0 K/mm3 (1.2-5.4) L 09/30/18 05:07 [place] # 0.4 K/mm3 (0.0-0.8) 09/30/18 05:07 Eos # 0.1 K/mm3 (0.0-0.4) 09/30/18 05:07 Baso # 0.1 K/mm3 (0.0-0.1) 09/30/18 05:07 Seg Neutrophils % 68.1 % (40.0-70.0) 09/30/18 05:07 Seg Neutrophils # 3.3 K/mm3 (1.8-7.7) 09/30/18 05:07 Sodium 140 mmol/L (137-145) 09/30/18 05:07 Potassium 4.7 mmol/L (3.6-5.0) 09/30/18 05:07 Chloride 99.8 mmol/L (98-107) 09/30/18 05:07 Carbon Dioxide 22 mmol/L (22-30) 09/30/18 05:07 23 mmol/L 09/30/18 05:07 BUN 38 mg/dL (9-20) H 09/30/18 05:07 7.1 mg/dL (0.8-1.5) H 09/30/18 05:07 Estimated GFR 9 ml/min 09/30/18 05:07 5 % 09/30/18 05:07 Glucose 149 mg/dL (75-100) H 09/30/18 05:07 POC Glucose 132 (70-105) H 09/29/18 08:51 4.8 % (4-6) 09/29/18 08:49 Lactic Acid 1.90 mmol/L (0.7-2.0) 09/29/18 11:50 Calcium 9.3 mg/dL (8.4-10.2) 09/30/18 05:07 0.40 mg/dL (0.1-1.2) 09/30/18 05:07 AST 21 units/L (5-40) 09/30/18 05:07 ALT < 5 units/L (7-56) L 09/30/18 05:07 48 units/L (35-129) 09/30/18 05:07 0.098 ng/mL (0.00-0.029) H 09/29/18 09:44 7.0 g/dL (6.3-8.2) 09/30/18 05:07 3.1 g/dL (3.9-5) L 09/30/18 05:07 0.8 % 09/30/18 05:07 TSH 6.680 mlU/mL (0.270-4.200) H 09/29/18 10:58 Yellow (Yellow) 09/29/18 11:13 Clear (Clear) 09/29/18 11:13 6.0 (5.0-7.0) 09/29/18 11:13 Ur Specific [place] 1.013 (1.003-1.030) 09/29/18 11:13 100 mg/dl mg/dL (Negative) 09/29/18 11:13 Neg mg/dL (Negative) 09/29/18 11:13 Neg mg/dL (Negative) 09/29/18 11:13 Sm (Negative) 09/29/18 11:13 Neg (Negative) 09/29/18 11:13 Neg (Negative) 09/29/18 11:13 < 2.0 mg/dL (<2.0) 09/29/18 11:13 Ur Leukocyte Esterase Neg (Negative) 09/29/18 11:13 1.0 /HPF (0.0-6.0) 09/29/18 11:13 13.0 /HPF (0.0-6.0) 09/29/18 11:13 U Epithel Cells (Auto) < 1.0 /HPF (0-13.0) 09/29/18 11:13 Few /HPF 09/29/18 11:13 Hepatitis A IgM Ab Non-reactive (NonReactive) 09/30/18 13:16 Hep B Core IgM Ab Non-reactive (NonReactive) 09/30/18 13:16 Non-reactive (NonReactive) 09/30/18 13:16 Active Medications - Current Medications Current Medications: Generic Name Dose Route Start Last Admin Trade Name Freq PRN Reason Stop Dose Admin Acetaminophen 650 mg 09/29/18 20:59 Tylenol PO Q4H PRN Pain MILD(1-3)/Fever >100.5/[place] Carbidopa/Levodopa 1 each 09/30/18 07:30 09/30/18 08:55 Sinemet PO 1 each TIDAC P[facility] Administration Clonazepam 0.5 mg 09/29/18 21:00 09/30/18 09:03 Klonopin PO 0.5 mg DAILY [facility] Administration Epoetin Scott 10,000 unit 09/30/18 10:33 Procrit SUB-Q YAS PRN hemodialysis Heparin Sodium (Porcine) 5,000 unit 09/29/18 22:00 09/30/18 09:02 Heparin SUB-Q 5,000 unit Q12HR [facility] Administration Heparin Sodium (Porcine) 2,000 unit 09/30/18 10:33 Heparin 10,000 Units/10 Ml IV YAS PRN hemodialysis Heparin Sodium (Porcine) 1,000 unit 09/30/18 10:33 Heparin 10,000 Units/10 Ml IV YAS PRN hemodialysis Hydroxyzine HCl 50 mg 09/29/18 22:00 09/30/18 09:03 Atarax PO 50 mg BID [facility] Administration Sodium Chloride 100 mls @ 999 mls/hr 09/30/18 10:33 Nacl 0.9% IV YAS PRN Hypotension Insulin Human Lispro 0 unit 09/30/18 07:30 09/30/18 14:40 Humalog SUB-Q Not Given ACHS [facility] Protocol Levothyroxine Sodium 50 mcg 09/30/18 06:05 Synthroid PO QDAY@0600 [facility] Levothyroxine Sodium 25 mcg 10/01/18 06:00 Synthroid PO 10/01/18 08:00 ONCE NR Olanzapine 20 mg 09/29/18 20:45 09/30/18 09:02 Zyprexa PO 20 mg DAILY [facility] Administration Ondansetron HCl 4 mg 09/29/18 20:59 Zofran IV Q8H PRN Nausea And Vomiting Sodium Chloride 10 ml 09/29/18 22:00 09/30/18 09:12 Sodium Chloride Flush Syringe 10 Ml IV 10 ml BID [facility] Administration Sodium Chloride 10 ml 09/29/18 20:59 Sodium Chloride Flush Syringe 10 Ml IV PRN PRN LINE FLUSH Tamsulosin HCl 0.4 mg 09/29/18 21:00 09/30/18 09:03 Flomax PO 0.4 mg DAILY [facility] Administration
[2018-09-30] MEDS ORDERED: VANCOMYCIN PHARMACY TO DOSE IV SCH (15:00)
[2018-09-30 15:24] LABS: Hepatitis B Surface Antigen Non-Reactive (Negative)
[2018-09-30] MEDS ORDERED: DULCOLAX PR ONE (16:01)
[2018-09-30] MEDS: MIRALAX 3350 PO SCH (17:04)
[2018-09-30] MEDS: ZITHROMAX 500 MG in NACL 0.9% 250ML 250 ML IV SCH (17:04)
[2018-09-30] MEDS ORDERED: NACL 0.9 (PRIMING MACHINE ONLY DIALYSIS) MC ONE (18:56)
--- NOTE | 2018-09-30 20:38 | Progress Note ---
Assessment and Plan 1. ESRD: Continue hemodialysis three times a week, MWF schedule. HD today. 2. Hypotension: BP is better. Monitor. 3. Suspected sepsis. 4. Anemia: Epogen with HD. 5. Encephalopathy. 6. DM type 2. 7. Parkinson's disease. 8. Dementia. Subjective Date of service: 09/30/18 Interval history: Patient was seen and examined at the bedside. Doing ok. Sister at the bedside. Objective - Vital Signs Vital signs: Vital Signs - 12hr 09/30/18 09/30/18 09/30/18 10:00 11:00 11:05 Temperature 98.1 F Pulse Rate 79 78 Pulse Rate [ 97 H Apical] Respiratory 18 Rate Blood Pressure 124/72 128/70 O2 Sat by Pulse Oximetry 09/30/18 09/30/18 09/30/18 11:15 11:30 11:45 Temperature Pulse Rate 79 80 86 Pulse Rate [ Apical] Respiratory Rate Blood Pressure 125/72 122/64 122/75 O2 Sat by Pulse Oximetry 09/30/18 09/30/18 09/30/18 12:00 12:15 12:30 Temperature Pulse Rate 95 H 89 95 H Pulse Rate [ Apical] Respiratory Rate Blood Pressure 117/76 121/71 116/70 O2 Sat by Pulse Oximetry 09/30/18 09/30/18 09/30/18 12:45 13:00 13:15 Temperature Pulse Rate 102 H 89 98 H Pulse Rate [ Apical] Respiratory Rate Blood Pressure 118/83 130/73 123/74 O2 Sat by Pulse Oximetry 09/30/18 09/30/18 09/30/18 13:30 13:45 14:00 Temperature Pulse Rate 97 H 101 H 95 H Pulse Rate [ Apical] Respiratory Rate Blood Pressure 125/72 128/71 115/80 O2 Sat by Pulse Oximetry 09/30/18 09/30/18 09/30/18 14:15 14:29 16:42 Temperature 98.1 F 98.4 F Pulse Rate 88 84 98 H Pulse Rate [ Apical] Respiratory 18 18 Rate Blood Pressure 134/75 113/69 O2 Sat by Pulse 99 Oximetry 09/30/18 19:52 Temperature Pulse Rate 98 H Pulse Rate [ Apical] Respiratory Rate Blood Pressure O2 Sat by Pulse Oximetry - General Appearance General appearance: well-developed, well-nourished, appears stated age, other (no distress) EENT: ATNC, PERRL, hearing intact, vision intact Neck: supple Respiratory: Present: Clear to Ascultation Cardiology: regular, S1S2, no murmurs Gastrointestinal: normoactive bowel sounds, no tenderness, no distended Integumentary: no rash, warm and dry Neurologic: no focal deficit, no asterixis, disoriented Musculoskeletal: other (no edema, L arm AVF) - Lab 09/30/18 05:07 09/30/18 05:07 Most recent lab results Calcium 9.3 mg/dL (8.4-10.2) 09/30/18 05:07 Medications & Allergies - Medications Allergies/Adverse Reactions: Allergies Penicillins Allergy (Verified 03/16/18 17:02) Unknown Home Medications: Home Medications Medication Instructions Recorded Confirmed Last Taken Type Tamsulosin [Flomax] 0.4 mg PO DAILY 01/21/15 09/29/18 02/07/15 History Carbidopa/Levodopa 10-100 [Sinemet] 1 each PO TIDAC 03/16/18 09/29/18 Unknown History Furosemide [Lasix] 20 mg PO QDAY 03/16/18 09/29/18 Unknown History ISOSORBIDE MONOnitrate [Imdur ER] 30 mg PO DAILY 03/16/18 09/29/18 Unknown History Hydroxyzine HCl [hydrOXYzine] 50 mg PO BID 09/29/18 09/29/18 Unknown History Levothyroxine [Synthroid] 25 mcg PO QDAY 09/29/18 09/29/18 Unknown History OLANZapine [Zyprexa] 20 mg PO DAILY 09/29/18 09/29/18 Unknown History clonazePAM [ Klonopin] 0.5 mg PO DAILY 09/29/18 09/29/18 Unknown History Active Medications: Generic Name Dose Route Start Last Admin Trade Name Freq PRN Reason Stop Dose Admin Acetaminophen 650 mg 09/29/18 20:59 Tylenol PO Q4H PRN Pain MILD(1-3)/Fever >100.5/[place] Carbidopa/Levodopa 1 each 09/30/18 07:30 09/30/18 17:23 Sinemet PO 1 each TIDAC [facility] Administration Clonazepam 0.5 mg 09/29/18 21:00 09/30/18 09:03 Klonopin PO 0.5 mg DAILY [facility] Administration Epoetin Scott 10,000 unit 09/30/18 10:33 Procrit SUB-Q YAS PRN hemodialysis Heparin Sodium (Porcine) 5,000 unit 09/29/18 22:00 09/30/18 09:02 Heparin SUB-Q 5,000 unit Q12HR [facility] Administration Heparin Sodium (Porcine) 2,000 unit 09/30/18 10:33 Heparin 10,000 Units/10 Ml IV YAS PRN hemodialysis Heparin Sodium (Porcine) 1,000 unit 09/30/18 10:33 Heparin 10,000 Units/10 Ml IV YAS PRN hemodialysis Sodium Chloride 100 mls @ 999 mls/hr 09/30/18 10:33 Nacl 0.9% IV YAS PRN Hypotension Azithromycin 500 mg/ Sodium 250 mls @ 250 mls/hr 09/30/18 16:00 09/30/18 17:04 Chloride IV 250 mls/hr Q24H [facility] Administration Insulin Human Lispro 0 unit 09/30/18 07:30 09/30/18 17:25 Humalog SUB-Q 1 unit ACHS [facility] Administration Protocol Levothyroxine Sodium 50 mcg 09/30/18 06:05 Synthroid PO QDAY@0600 [facility] Levothyroxine Sodium 25 mcg 10/01/18 06:00 Synthroid PO 10/01/18 08:00 ONCE NR Olanzapine 20 mg 09/29/18 20:45 09/30/18 09:02 Zyprexa PO 20 mg DAILY [facility] Administration Polyethylene Glycol 17 gm 09/30/18 16:00 09/30/18 17:04 Miralax 3350 PO 17 gm QDAY [facility] Administration Sodium Chloride 10 ml 09/29/18 22:00 09/30/18 09:12 Sodium Chloride Flush Syringe 10 Ml IV 10 ml BID [facility] Administration Sodium Chloride 10 ml 09/29/18 20:59 Sodium Chloride Flush Syringe 10 Ml IV PRN PRN LINE FLUSH Tamsulosin HCl 0.4 mg 09/29/18 21:00 09/30/18 09:03 Flomax PO 0.4 mg DAILY [facility] Administration
[2018-10-01] MEDS ORDERED: SYNTHROID PO NR (06:00)
[2018-10-01] MEDS: SYNTHROID PO SCH (06:00)
[2018-10-01 06:01] LABS: Mean Corpuscular HGB Conc 32 % (32-34); Mean Corpuscular Volume 88 fl (84-94); Platelet Count 168 K/mm3 (140-440); Red Blood Count 3.53 M/mm3 (3.65-5.03); Red Cell Distribution Width 15.4 % (13.2-15.2)
[2018-10-01 06:41] LABS: Calcium 9.6 mg/dL (8.4-10.2)
[2018-10-01] MEDS: HumaLOG SUB-Q SCH ×4 (07:30→22:01)
--- NOTE | 2018-10-01 09:29 | Progress Note ---
Assessment and Plan 1. ESRD: Continue hemodialysis three times a week, MWF schedule. 2. Hypotension: BP is better. Monitor. 3. Suspected sepsis: GPC in 1 out of 2 bottles. 4. Anemia: Epogen with HD. 5. Encephalopathy. 6. DM type 2. 7. Parkinson's disease. 8. Dementia. Subjective Date of service: 10/01/18 Interval history: Patient was seen and examined at the bedside. Doing ok. Objective - Vital Signs Vital signs: Vital Signs - 12hr 09/30/18 10/01/18 10/01/18 23:38 04:23 07:36 Temperature 98.0 F 98.3 F 98.4 F Pulse Rate 109 H 91 H Respiratory 18 18 18 Rate Blood Pressure 109/73 112/70 139/80 O2 Sat by Pulse 98 97 Oximetry - General Appearance General appearance: well-developed, well-nourished, appears stated age, other (no distress) EENT: ATNC, PERRL, hearing diminished Neck: supple Respiratory: Present: Clear to Ascultation Cardiology: S1S2, no murmurs Gastrointestinal: normoactive bowel sounds, no tenderness, no distended Integumentary: no rash Neurologic: confused, disoriented, other (able to move all 4 extremities) Musculoskeletal: other (no edema, L arm AVF) - Lab 10/01/18 05:43 10/01/18 05:43 Most recent lab results Calcium 9.6 mg/dL (8.4-10.2) 10/01/18 05:43 Medications & Allergies - Medications Allergies/Adverse Reactions: Allergies Penicillins Allergy (Verified 03/16/18 17:02) Unknown Home Medications: Home Medications Medication Instructions Recorded Confirmed Last Taken Type Tamsulosin [Flomax] 0.4 mg PO DAILY 01/21/15 09/29/18 02/07/15 History Carbidopa/Levodopa 10-100 [Sinemet] 1 each PO TIDAC 03/16/18 09/29/18 Unknown History Furosemide [Lasix] 20 mg PO QDAY 03/16/18 09/29/18 Unknown History ISOSORBIDE MONOnitrate [Imdur ER] 30 mg PO DAILY 03/16/18 09/29/18 Unknown History Hydroxyzine HCl [hydrOXYzine] 50 mg PO BID 09/29/18 09/29/18 Unknown History Levothyroxine [Synthroid] 25 mcg PO QDAY 09/29/18 09/29/18 Unknown History OLANZapine [Zyprexa] 20 mg PO DAILY 09/29/18 09/29/18 Unknown History clonazePAM [ Klonopin] 0.5 mg PO DAILY 09/29/18 09/29/18 Unknown History Active Medications: Generic Name Dose Route Start Last Admin Trade Name Freq PRN Reason Stop Dose Admin Acetaminophen 650 mg 09/29/18 20:59 Tylenol PO Q4H PRN Pain MILD(1-3)/Fever >100.5/[place] Carbidopa/Levodopa 1 each 09/30/18 07:30 09/30/18 17:23 Sinemet PO 1 each TIDAC [facility] Administration Clonazepam 0.5 mg 09/29/18 21:00 09/30/18 09:03 Klonopin PO 0.5 mg DAILY [facility] Administration Epoetin Scott 10,000 unit 09/30/18 10:33 Procrit SUB-Q YAS PRN hemodialysis Heparin Sodium (Porcine) 5,000 unit 09/29/18 22:00 09/30/18 21:52 Heparin SUB-Q 5,000 unit Q12HR [facility] Administration Heparin Sodium (Porcine) 2,000 unit 09/30/18 10:33 Heparin 10,000 Units/10 Ml IV YAS PRN hemodialysis Heparin Sodium (Porcine) 1,000 unit 09/30/18 10:33 Heparin 10,000 Units/10 Ml IV YAS PRN hemodialysis Sodium Chloride 100 mls @ 999 mls/hr 09/30/18 10:33 Nacl 0.9% IV YAS PRN Hypotension Azithromycin 500 mg/ Sodium 250 mls @ 250 mls/hr 09/30/18 16:00 09/30/18 17:04 Chloride IV 250 mls/hr Q24H [facility] Administration Insulin Human Lispro 0 unit 09/30/18 07:30 09/30/18 17:25 Humalog SUB-Q 1 unit ACHS [facility] Administration Protocol Levothyroxine Sodium 50 mcg 09/30/18 06:05 Synthroid PO QDAY@0600 P[facility] Olanzapine 20 mg 09/29/18 20:45 09/30/18 09:02 Zyprexa PO 20 mg DAILY [facility] Administration Polyethylene Glycol 17 gm 09/30/18 16:00 09/30/18 17:04 Miralax 3350 PO 17 gm QDAY [facility] Administration Sodium Chloride 10 ml 09/29/18 22:00 09/30/18 09:12 Sodium Chloride Flush Syringe 10 Ml IV 10 ml BID [facility] Administration Sodium Chloride 10 ml 09/29/18 20:59 Sodium Chloride Flush Syringe 10 Ml IV PRN PRN LINE FLUSH Tamsulosin HCl 0.4 mg 09/29/18 21:00 09/30/18 09:03 Flomax PO 0.4 mg DAILY P[facility]IO Administration
[2018-10-01] MEDS: HEPARIN SUB-Q SCH ×2 (09:42→22:03)
[2018-10-01] MEDS: MIRALAX 3350 PO SCH (09:43)
[2018-10-01] MEDS: SINEMET PO SCH ×3 (09:43→16:53)
[2018-10-01] MEDS: FLOMAX PO SCH (09:44)
--- NOTE | 2018-10-01 14:18 | Progress Note ---
Assessment and Plan Assessment and plan: Patient is a 68 yo man with from [facility] with history of ESRD on HD MWF, hypertension, DM type 2, Dementia, systolic heart failure, Schizophrenia and dyslipidemia who presented with AMS, lethargy and hypotension * CT abd/pelvis with contrast Impression: Prominent stool from cecum to rectum may reflect constipation * CT head without contrast Impression: no acute CVA, left frontal sinus may reflect acute sinusitis, chronic appearing lacunar infarcts right caudate head and left lateral basal ganglia, prior left orbital floor surgery, * pCXR unremarkable Hypotension; adjust with HD ESRD on HD: Nephrology consulted Hypothyroidism, worse: d/w Ms. Clemens tool supervisor, and will increase the dose of Levothyroxine Constipation: give Miralax daily, add dulcolax suppository x 1 Acute metabolic encephalopathy Prelim GPC in clusters 1 out of 2 bottle: stop Aztreonam and start empiric give iv vancomycin which he received yesterday in ED. Acute sinusitis: add Azithromycin +iv vancomycin, PCN allergy Await blood culture results. I called Micro lab, not ready yet Anticipate d/c History Interval history: Patient was seen and examined. Follow-up on current diagnosis of AMS. No overnight events reported to me. Imaging, nursing note, chart, labs and old chart reviewed. Discussed with caregiver over the phone and relative at bedside. Hospitalist Physical - Physical exam Narrative exam: Gen: WDWN, NAD, Awake, Alert, Orientated x 2 HEENT: NCAT, EOMI, PERRL, OP Clear Neck: supple, no adenopathy, no thyromegaly, no JVD CVS/Heart: RRR, normal S1S2, pulses present bilaterally Chest/Lungs: CTA B, Symmetrical chest expansion, good air entry bilaterally GI/Abdomen: soft, NTND, good bowel sounds, no guarding or rebound /Bladder: no suprapubic tenderness, no CVA or paraspinal tenderness Extermity/Skin: no c/c/e, no obvious rash MSK: FROM x 4 Neuro: CN 2-12 grossly intact, no new focal deficits Psych: calm - Constitutional Vitals: Temp Pulse Resp BP Pulse Ox 98.5 F 92 H 18 134/77 97 10/01/18 12:34 10/01/18 10:00 10/01/18 12:34 10/01/18 12:34 10/01/18 04:23 Results - Labs CBC & Chem 7: 10/01/18 05:43 10/01/18 05:43 Labs: Laboratory Last Values WBC 4.4 K/mm3 (4.5-11.0) L 10/01/18 05:43 RBC 3.53 M/mm3 (3.65-5.03) L 10/01/18 05:43 Hgb 10.0 gm/dl (11.8-15.2) L 10/01/18 05:43 Hct 31.0 % (35.5-45.6) L 10/01/18 05:43 MCV 88 fl (84-94) 10/01/18 05:43 MCH 28 pg (28-32) 10/01/18 05:43 MCHC 32 % (32-34) 10/01/18 05:43 RDW 15.4 % (13.2-15.2) H 10/01/18 05:43 Plt Count 168 K/mm3 (140-440) 10/01/18 05:43 Lymph % (Auto) 21.0 % (13.4-35.0) 09/30/18 05:07 [place] % (Auto) 8.5 % (0.0-7.3) H 09/30/18 05:07 Eos % (Auto) 1.2 % (0.0-4.3) 09/30/18 05:07 Baso % (Auto) 1.2 % (0.0-1.8) 09/30/18 05:07 Lymph # 1.0 K/mm3 (1.2-5.4) L 09/30/18 05:07 [place] # 0.4 K/mm3 (0.0-0.8) 09/30/18 05:07 Eos # 0.1 K/mm3 (0.0-0.4) 09/30/18 05:07 Baso # 0.1 K/mm3 (0.0-0.1) 09/30/18 05:07 Seg Neutrophils % 68.1 % (40.0-70.0) 09/30/18 05:07 Seg Neutrophils # 3.3 K/mm3 (1.8-7.7) 09/30/18 05:07 Sodium 138 mmol/L (137-145) 10/01/18 05:43 Potassium 4.5 mmol/L (3.6-5.0) 10/01/18 05:43 Chloride 96.0 mmol/L (98-107) L 10/01/18 05:43 Carbon Dioxide 25 mmol/L (22-30) 10/01/18 05:43 22 mmol/L 10/01/18 05:43 BUN 25 mg/dL (9-20) H 10/01/18 05:43 4.8 mg/dL (0.8-1.5) H 10/01/18 05:43 Estimated GFR 15 ml/min 10/01/18 05:43 5 % 10/01/18 05:43 Glucose 97 mg/dL (75-100) 10/01/18 05:43 POC Glucose 132 (70-105) H 10/01/18 11:49 4.8 % (4-6) 09/29/18 08:49 Lactic Acid 1.90 mmol/L (0.7-2.0) 09/29/18 11:50 Calcium 9.6 mg/dL (8.4-10.2) 10/01/18 05:43 0.40 mg/dL (0.1-1.2) 09/30/18 05:07 AST 21 units/L (5-40) 09/30/18 05:07 ALT < 5 units/L (7-56) L 09/30/18 05:07 48 units/L (35-129) 09/30/18 05:07 0.098 ng/mL (0.00-0.029) H 09/29/18 09:44 7.0 g/dL (6.3-8.2) 09/30/18 05:07 3.1 g/dL (3.9-5) L 09/30/18 05:07 0.8 % 09/30/18 05:07 TSH 6.680 mlU/mL (0.270-4.200) H 09/29/18 10:58 Yellow (Yellow) 09/29/18 11:13 Clear (Clear) 09/29/18 11:13 6.0 (5.0-7.0) 09/29/18 11:13 Ur Specific [place] 1.013 (1.003-1.030) 09/29/18 11:13 100 mg/dl mg/dL (Negative) 09/29/18 11:13 Neg mg/dL (Negative) 09/29/18 11:13 Neg mg/dL (Negative) 09/29/18 11:13 Sm (Negative) 09/29/18 11:13 Neg (Negative) 09/29/18 11:13 Neg (Negative) 09/29/18 11:13 < 2.0 mg/dL (<2.0) 09/29/18 11:13 Ur Leukocyte Esterase Neg (Negative) 09/29/18 11:13 1.0 /HPF (0.0-6.0) 09/29/18 11:13 13.0 /HPF (0.0-6.0) 09/29/18 11:13 U Epithel Cells (Auto) < 1.0 /HPF (0-13.0) 09/29/18 11:13 Few /HPF 09/29/18 11:13 Random Vancomycin 12.2 ug/mL (0-40.0) 10/01/18 08:34 Hepatitis A IgM Ab Non-reactive (NonReactive) 09/30/18 13:16 Hep Bs Antigen Non-reactive (Negative) 09/30/18 13:16 Hep B Core IgM Ab Non-reactive (NonReactive) 09/30/18 13:16 Non-reactive (NonReactive) 09/30/18 13:16 Active Medications - Current Medications Current Medications: Generic Name Dose Route Start Last Admin Trade Name Freq PRN Reason Stop Dose Admin Acetaminophen 650 mg 09/29/18 20:59 Tylenol PO Q4H PRN Pain MILD(1-3)/Fever >100.5/[place] Carbidopa/Levodopa 1 each 09/30/18 07:30 10/01/18 09:43 Sinemet PO 1 each TIDAC PORFIRIO Administration Clonazepam 0.5 mg 09/29/18 21:00 10/01/18 09:43 Klonopin PO 0.5 mg DAILY PORFIRIO Administration Epoetin [place] 10,000 unit 09/30/18 10:33 Procrit SUB-Q YAS PRN hemodialysis Heparin Sodium (Porcine) 5,000 unit 09/29/18 22:00 10/01/18 09:42 Heparin SUB-Q 5,000 unit Q12HR PORFIRIO Administration Heparin Sodium (Porcine) 2,000 unit 09/30/18 10:33 Heparin 10,000 Units/10 Ml IV YAS PRN hemodialysis Heparin Sodium (Porcine) 1,000 unit 09/30/18 10:33 Heparin 10,000 Units/10 Ml IV YAS PRN hemodialysis Sodium Chloride 100 mls @ 999 mls/hr 09/30/18 10:33 Nacl 0.9% IV YAS PRN Hypotension Azithromycin 500 mg/ Sodium 250 mls @ 250 mls/hr 09/30/18 16:00 09/30/18 17:04 Chloride IV 250 mls/hr Q24H PORFIRIO Administration Insulin Human Lispro 0 unit 09/30/18 07:30 09/30/18 17:25 Humalog SUB-Q 1 unit ACHS PORFIRIO Administration Protocol Levothyroxine Sodium 50 mcg 09/30/18 06:05 Synthroid PO QDAY@0600 PORFIRIO Olanzapine 20 mg 09/29/18 20:45 10/01/18 09:43 Zyprexa PO 20 mg DAILY PORFIRIO Administration Polyethylene Glycol 17 gm 09/30/18 16:00 10/01/18 09:43 Miralax 3350 PO 17 gm QDAY PORFIRIO Administration Sodium Chloride 10 ml 09/29/18 22:00 09/30/18 09:12 Sodium Chloride Flush Syringe 10 Ml IV 10 ml BID PORFIRIO Administration Sodium Chloride 10 ml 09/29/18 20:59 Sodium Chloride Flush Syringe 10 Ml IV PRN PRN LINE FLUSH Tamsulosin HCl 0.4 mg 09/29/18 21:00 10/01/18 09:44 Flomax PO 0.4 mg DAILY PORFIRIO Administration
[2018-10-01] MEDS: ZITHROMAX 500 MG in NACL 0.9% 250ML 250 ML IV SCH (16:37)
[2018-10-01] MEDS: SODIUM CHLORIDE FLUSH SYRINGE 10 ML IV SCH ×2 (16:38→22:04)
[2018-10-02] MEDS: SYNTHROID PO SCH (06:39)
--- NOTE | 2018-10-02 08:52 | Progress Note ---
Assessment and Plan 1. ESRD: Continue hemodialysis three times a week, MWF schedule. HD today. 2. Hypotension: BP is better. Monitor. 3. Suspected sepsis: GPC in 1 out of 2 bottles. 4. Anemia: Epogen with HD. 5. Encephalopathy. 6. DM type 2. 7. Parkinson's disease. 8. Dementia. Subjective Date of service: 10/02/18 Interval history: Patient was seen and examined at the bedside while on HD. Doing ok. Objective - Vital Signs Vital signs: Vital Signs - 12hr 10/01/18 10/01/18 10/02/18 23:51 23:59 04:26 Temperature 98.1 F 98.2 F 97.8 F Pulse Rate 101 H 94 H Respiratory 18 18 18 Rate Blood Pressure 116/68 147/82 O2 Sat by Pulse 96 97 Oximetry - General Appearance General appearance: well-developed, well-nourished, appears stated age, other (no distress) EENT: ATNC, PERRL Neck: supple Respiratory: Present: Clear to Ascultation Cardiology: regular, S1S2 Gastrointestinal: normoactive bowel sounds, no tenderness, no distended Integumentary: no rash, warm and dry Neurologic: confused, disoriented, other (able to move extremities) Musculoskeletal: other (no edema, L arm AVF) - Lab 10/01/18 05:43 10/01/18 05:43 Most recent lab results Calcium 9.6 mg/dL (8.4-10.2) 10/01/18 05:43 Medications & Allergies - Medications Allergies/Adverse Reactions: Allergies Penicillins Allergy (Verified 03/16/18 17:02) Unknown Home Medications: Home Medications Medication Instructions Recorded Confirmed Last Taken Type Tamsulosin [Flomax] 0.4 mg PO DAILY 01/21/15 09/29/18 02/07/15 History Carbidopa/Levodopa 10-100 [Sinemet] 1 each PO TIDAC 03/16/18 09/29/18 Unknown History Furosemide [Lasix] 20 mg PO QDAY 03/16/18 09/29/18 Unknown History ISOSORBIDE MONOnitrate [Imdur ER] 30 mg PO DAILY 03/16/18 09/29/18 Unknown History Hydroxyzine HCl [hydrOXYzine] 50 mg PO BID 09/29/18 09/29/18 Unknown History Levothyroxine [Synthroid] 25 mcg PO QDAY 09/29/18 09/29/18 Unknown History OLANZapine [Zyprexa] 20 mg PO DAILY 09/29/18 09/29/18 Unknown History clonazePAM [ Klonopin] 0.5 mg PO DAILY 09/29/18 09/29/18 Unknown History Active Medications: Generic Name Dose Route Start Last Admin Trade Name Freq PRN Reason Stop Dose Admin Acetaminophen 650 mg 09/29/18 20:59 Tylenol PO Q4H PRN Pain MILD(1-3)/Fever >100.5/[place] Carbidopa/Levodopa 1 each 09/30/18 07:30 10/01/18 16:53 Sinemet PO 1 each TIDAC PORFIRIO Administration Clonazepam 0.5 mg 09/29/18 21:00 10/01/18 09:43 Klonopin PO 0.5 mg DAILY PORFIRIO Administration Epoetin Scott 10,000 unit 09/30/18 10:33 Procrit SUB-Q YAS PRN hemodialysis Heparin Sodium (Porcine) 5,000 unit 09/29/18 22:00 10/01/18 22:03 Heparin SUB-Q 5,000 unit Q12HR PORFIRIO Administration Heparin Sodium (Porcine) 2,000 unit 09/30/18 10:33 Heparin 10,000 Units/10 Ml IV YAS PRN hemodialysis Heparin Sodium (Porcine) 1,000 unit 09/30/18 10:33 Heparin 10,000 Units/10 Ml IV YAS PRN hemodialysis Sodium Chloride 100 mls @ 999 mls/hr 09/30/18 10:33 Nacl 0.9% IV YAS PRN Hypotension Azithromycin 500 mg/ Sodium 250 mls @ 250 mls/hr 09/30/18 16:00 10/01/18 16:37 Chloride IV 250 mls/hr Q24H PORFIRIO Administration Insulin Human Lispro 0 unit 09/30/18 07:30 10/01/18 22:01 Humalog SUB-Q Not Given ACHS [facility] Protocol Levothyroxine Sodium 50 mcg 09/30/18 06:05 10/02/18 06:39 Synthroid PO 50 mcg QDAY@0600 PORFIRIO Administration Olanzapine 20 mg 09/29/18 20:45 10/01/18 09:43 Zyprexa PO 20 mg DAILY PORFIRIO Administration Polyethylene Glycol 17 gm 09/30/18 16:00 10/01/18 09:43 Miralax 3350 PO 17 gm QDAY PORFIRIO Administration Sodium Chloride 10 ml 09/29/18 22:00 10/01/18 22:04 Sodium Chloride Flush Syringe 10 Ml IV 10 ml BID PORFIRIO Administration Sodium Chloride 10 ml 09/29/18 20:59 Sodium Chloride Flush Syringe 10 Ml IV PRN PRN LINE FLUSH Tamsulosin HCl 0.4 mg 09/29/18 21:00 10/01/18 09:44 Flomax PO 0.4 mg DAILY PORFIRIO Administration
[2018-10-02] MEDS: HEPARIN SUB-Q SCH ×2 (10:00→21:52)
--- NOTE | 2018-10-02 14:52 | Progress Note ---
Assessment and Plan Assessment and plan: Patient is a 68 yo man with from [facility] with history of ESRD on HD MWF, hypertension, DM type 2, Dementia, systolic heart failure, Schizophrenia and dyslipidemia who presented with AMS, lethargy and hypotension * CT abd/pelvis with contrast Impression: Prominent stool from cecum to rectum may reflect constipation * CT head without contrast Impression: no acute CVA, left frontal sinus may reflect acute sinusitis, chronic appearing lacunar infarcts right caudate head and left lateral basal ganglia, prior left orbital floor surgery, * pCXR unremarkable Hypotension; adjust with HD ESRD on HD: Nephrology consulted,input noted Hypothyroidism, worse: d/w Ms. Clemens director surgical, and will increase the dose of L evothyroxine Constipation: give Miralax daily, add dulcolax suppository x 1 Acute metabolic encephalopathy Prelim GPC in clusters 1 out of 2 bottle: stop Aztreonam and start empiric give iv vancomycin which he received yesterday in ED. Acute sinusitis with SEPSIS, poa: added Azithromycin +iv vancomycin, PCN allergy Await blood culture results. I called Micro lab===>sending off cultures to [facility], should be back on Friday I called and updated caregiver Mariya Rose [phone] History Interval history: Patient was seen and examined. Follow-up on current diagnosis of AMS. No ov ernight events reported to me. Imaging, nursing note, chart, labs and old chart reviewed. Discussed with caregiver over the phone and relative at bedside. Hospitalist Physical - Physical exam Narrative exam: Gen: WDWN, NAD, Awake, Alert, Orientated x 2 HEENT: NCAT, EOMI, PERRL, OP Clear Neck: supple, no adenopathy, no thyromegaly, no JVD CVS/Heart: RRR, normal S1S2, pulses present bilaterally Chest/Lungs: CTA B, Symmetrical chest expansion, good air entry bilaterally GI/Abdomen: soft, NTND, good bowel sounds, no guarding or rebound /Bladder: no suprapubic tenderness, no CVA or paraspinal tenderness Extermity/Skin: no c/c/e, no obvious rash MSK: FROM x 4 Neuro: CN 2-12 grossly intact, no new focal deficits Psych: calm - Constitutional Vitals: Temp Pulse Resp BP Pulse Ox 98.2 F 92 H 18 127/69 95 10/02/18 09:00 10/02/18 10:16 10/02/18 09:00 10/02/18 10:15 10/02/18 10:18 Results - Labs CBC & Chem 7: 10/01/18 05:43 10/01/18 05:43 Labs: Laboratory Last Values WBC 4.4 K/mm3 (4.5-11.0) L 10/01/18 05:43 RBC 3.53 M/mm3 (3.65-5.03) L 10/01/18 05:43 Hgb 10.0 gm/dl (11.8-15.2) L 10/01/18 05:43 Hct 31.0 % (35.5-45.6) L 10/01/18 05:43 MCV 88 fl (84-94) 10/01/18 05:43 MCH 28 pg (28-32) 10/01/18 05:43 MCHC 32 % (32-34) 10/01/18 05:43 RDW 15.4 % (13.2-15.2) H 10/01/18 05:43 Plt Count 168 K/mm3 (140-440) 10/01/18 05:43 Lymph % (Auto) 21.0 % (13.4-35.0) 09/30/18 05:07 [place] % (Auto) 8.5 % (0.0-7.3) H 09/30/18 05:07 Eos % (Auto) 1.2 % (0.0-4.3) 09/30/18 05:07 Baso % (Auto) 1.2 % (0.0-1.8) 09/30/18 05:07 Lymph # 1.0 K/mm3 (1.2-5.4) L 09/30/18 05:07 [place] # 0.4 K/mm3 (0.0-0.8) 09/30/18 05:07 Eos # 0.1 K/mm3 (0.0-0.4) 09/30/18 05:07 Baso # 0.1 K/mm3 (0.0-0.1) 09/30/18 05:07 Seg Neutrophils % 68.1 % (40.0-70.0) 09/30/18 05:07 Seg Neutrophils # 3.3 K/mm3 (1.8-7.7) 09/30/18 05:07 Sodium 138 mmol/L (137-145) 10/01/18 05:43 Potassium 4.5 mmol/L (3.6-5.0) 10/01/18 05:43 Chloride 96.0 mmol/L (98-107) L 10/01/18 05:43 Carbon Dioxide 25 mmol/L (22-30) 10/01/18 05:43 22 mmol/L 10/01/18 05:43 BUN 25 mg/dL (9-20) H 10/01/18 05:43 4.8 mg/dL (0.8-1.5) H 10/01/18 05:43 Estimated GFR 15 ml/min 10/01/18 05:43 5 % 10/01/18 05:43 Glucose 97 mg/dL (75-100) 10/01/18 05:43 POC Glucose 111 (70-105) H 10/02/18 07:34 4.8 % (4-6) 09/29/18 08:49 Lactic Acid 1.90 mmol/L (0.7-2.0) 09/29/18 11:50 Calcium 9.6 mg/dL (8.4-10.2) 10/01/18 05:43 0.40 mg/dL (0.1-1.2) 09/30/18 05:07 AST 21 units/L (5-40) 09/30/18 05:07 ALT < 5 units/L (7-56) L 09/30/18 05:07 48 units/L (35-129) 09/30/18 05:07 0.098 ng/mL (0.00-0.029) H 09/29/18 09:44 7.0 g/dL (6.3-8.2) 09/30/18 05:07 3.1 g/dL (3.9-5) L 09/30/18 05:07 0.8 % 09/30/18 05:07 TSH 6.680 mlU/mL (0.270-4.200) H 09/29/18 10:58 Yellow (Yellow) 09/29/18 11:13 Clear (Clear) 09/29/18 11:13 6.0 (5.0-7.0) 09/29/18 11:13 Ur Specific [place] 1.013 (1.003-1.030) 09/29/18 11:13 100 mg/dl mg/dL (Negative) 09/29/18 11:13 Neg mg/dL (Negative) 09/29/18 11:13 Neg mg/dL (Negative) 09/29/18 11:13 Sm (Negative) 09/29/18 11:13 Neg (Negative) 09/29/18 11:13 Neg (Negative) 09/29/18 11:13 < 2.0 mg/dL (<2.0) 09/29/18 11:13 Ur Leukocyte Esterase Neg (Negative) 09/29/18 11:13 1.0 /HPF (0.0-6.0) 09/29/18 11:13 13.0 /HPF (0.0-6.0) 09/29/18 11:13 U Epithel Cells (Auto) < 1.0 /HPF (0-13.0) 09/29/18 11:13 Few /HPF 09/29/18 11:13 Random Vancomycin 12.2 ug/mL (0-40.0) 10/01/18 08:34 Hepatitis A IgM Ab Non-reactive (NonReactive) 09/30/18 13:16 Hep Bs Antigen Non-reactive (Negative) 09/30/18 13:16 Hep B Core IgM Ab Non-reactive (NonReactive) 09/30/18 13:16 Non-reactive (NonReactive) 09/30/18 13:16 Active Medications - Current Medications Current Medications: Generic Name Dose Route Start Last Admin Trade Name Freq PRN Reason Stop Dose Admin Acetaminophen 650 mg 09/29/18 20:59 Tylenol PO Q4H PRN Pain MILD(1-3)/Fever >100.5/[place] Carbidopa/Levodopa 1 each 09/30/18 07:30 10/01/18 16:53 Sinemet PO 1 each TIDAC PORFIRIO Administration Clonazepam 0.5 mg 09/29/18 21:00 10/01/18 09:43 Klonopin PO 0.5 mg DAILY PORFIRIO Administration Epoetin Scott 10,000 unit 09/30/18 10:33 Procrit SUB-Q YAS PRN hemodialysis Heparin Sodium (Porcine) 5,000 unit 09/29/18 22:00 10/01/18 22:03 Heparin SUB-Q 5,000 unit Q12HR PORFIRIO Administration Heparin Sodium (Porcine) 2,000 unit 09/30/18 10:33 10/02/18 09:41 Heparin 10,000 Units/10 Ml IV 2,000 unit YAS PRN Administration hemodialysis Heparin Sodium (Porcine) 1,000 unit 09/30/18 10:33 10/02/18 09:47 Heparin 10,000 Units/10 Ml IV 1,000 unit YAS PRN Administration hemodialysis Sodium Chloride 100 mls @ 999 mls/hr 09/30/18 10:33 Nacl 0.9% IV YAS PRN Hypotension Azithromycin 500 mg/ Sodium 250 mls @ 250 mls/hr 09/30/18 16:00 10/01/18 16:37 Chloride IV 250 mls/hr Q24H PORFIRIO Administration Vancomycin HCl 1 gm in 250 mls @ 167.007 mls/hr 10/02/18 16:00 Vancomycin/Ns 1 Gm/250 Ml IV 10/02/18 17:29 ONCE ONE Insulin Human Lispro 0 unit 09/30/18 07:30 10/01/18 22:01 Humalog SUB-Q Not Given ACHS [facility] Protocol Levothyroxine Sodium 50 mcg 09/30/18 06:05 10/02/18 06:39 Synthroid PO 50 mcg QDAY@0600 PORFIRIO Administration Olanzapine 20 mg 09/29/18 20:45 10/01/18 09:43 Zyprexa PO 20 mg DAILY PORFIRIO Administration Polyethylene Glycol 17 gm 09/30/18 16:00 10/01/18 09:43 Miralax 3350 PO 17 gm QDAY PORFIRIO Administration Sodium Chloride 10 ml 09/29/18 22:00 10/01/18 22:04 Sodium Chloride Flush Syringe 10 Ml IV 10 ml BID PORFIRIO Administration Sodium Chloride 10 ml 09/29/18 20:59 Sodium Chloride Flush Syringe 10 Ml IV PRN PRN LINE FLUSH Tamsulosin HCl 0.4 mg 09/29/18 21:00 10/01/18 09:44 Flomax PO 0.4 mg DAILY PORFIRIO Administration
[2018-10-02] MEDS: SINEMET PO SCH (15:15)
[2018-10-02] MEDS: FLOMAX PO SCH (15:16)
[2018-10-02] MEDS: MIRALAX 3350 PO SCH (15:17)
[2018-10-02] MEDS: SODIUM CHLORIDE FLUSH SYRINGE 10 ML IV SCH (15:25)
[2018-10-02] MEDS ORDERED: VANCOMYCIN/NS 1 GM/250 ML 1 GM/250 ML BAG IV ONE (16:00)
[2018-10-02] MEDS: HumaLOG SUB-Q SCH (21:50)
[2018-10-03] MEDS: SODIUM CHLORIDE FLUSH SYRINGE 10 ML IV SCH ×3 (04:25→22:25)
[2018-10-03] MEDS: SYNTHROID PO SCH (05:37)
--- NOTE | 2018-10-03 10:08 | Progress Note ---
Assessment and Plan Assessment and plan: Patient is a 68 yo man with from [facility] with history of ESRD on HD MWF, hypertension, DM type 2, Dementia, systolic heart failure, Schizophrenia and dyslipidemia who presented with AMS, lethargy and hypotension * CT abd/pelvis with contrast Impression: Prominent stool from cecum to rectum may reflect constipation * CT head without contrast Impression: no acute CVA, left frontal sinus may reflect acute sinusitis, chronic appearing lacunar infarcts right caudate head and left lateral basal ganglia, prior left orbital floor surgery, * pCXR unremarkable Hypotension; adjust with HD ESRD on HD: Nephrology consulted,input noted Hypothyroidism, worse: d/w Ms. Clemens sales audit clerk, and will increase the dose of L evothyroxine Constipation: give Miralax daily, add dulcolax suppository x 1 Acute metabolic encephalopathy Prelim GPC in clusters 1 out of 2 bottle: stop Aztreonam and start empiric give iv vancomycin which he received yesterday in ED. Acute sinusitis with SEPSIS, poa: added Azithromycin +iv vancomycin, PCN allergy Await blood culture results. I called Micro lab===>sending off cultures to [facility], should be back on Friday I called and updated caregiver Mariya Rose [phone] History Interval history: Patient was seen and examined. Follow-up on current diagnosis of AMS. No ov ernight events reported to me. Imaging, nursing note, chart, labs and old chart reviewed. Discussed with caregiver over the phone and relative at bedside. Hospitalist Physical - Physical exam Narrative exam: Gen: WDWN, NAD, Awake, Alert, Orientated x 2 HEENT: NCAT, EOMI, PERRL, OP Clear Neck: supple, no adenopathy, no thyromegaly, no JVD CVS/Heart: RRR, normal S1S2, pulses present bilaterally Chest/Lungs: CTA B, Symmetrical chest expansion, good air entry bilaterally GI/Abdomen: soft, NTND, good bowel sounds, no guarding or rebound /Bladder: no suprapubic tenderness, no CVA or paraspinal tenderness Extermity/Skin: no c/c/e, no obvious rash MSK: FROM x 4 Neuro: CN 2-12 grossly intact, no new focal deficits Psych: calm - Constitutional Vitals: Temp Pulse Resp BP Pulse Ox 98.0 F 106 H 18 134/91 100 10/03/18 08:27 10/03/18 04:00 10/03/18 08:27 10/03/18 08:27 10/03/18 04:00 Results - Labs CBC & Chem 7: 10/01/18 05:43 10/01/18 05:43 Labs: Laboratory Last Values WBC 4.4 K/mm3 (4.5-11.0) L 10/01/18 05:43 RBC 3.53 M/mm3 (3.65-5.03) L 10/01/18 05:43 Hgb 10.0 gm/dl (11.8-15.2) L 10/01/18 05:43 Hct 31.0 % (35.5-45.6) L 10/01/18 05:43 MCV 88 fl (84-94) 10/01/18 05:43 MCH 28 pg (28-32) 10/01/18 05:43 MCHC 32 % (32-34) 10/01/18 05:43 RDW 15.4 % (13.2-15.2) H 10/01/18 05:43 Plt Count 168 K/mm3 (140-440) 10/01/18 05:43 Lymph % (Auto) 21.0 % (13.4-35.0) 09/30/18 05:07 [place] % (Auto) 8.5 % (0.0-7.3) H 09/30/18 05:07 Eos % (Auto) 1.2 % (0.0-4.3) 09/30/18 05:07 Baso % (Auto) 1.2 % (0.0-1.8) 09/30/18 05:07 Lymph # 1.0 K/mm3 (1.2-5.4) L 09/30/18 05:07 Alexander # 0.4 K/mm3 (0.0-0.8) 09/30/18 05:07 Eos # 0.1 K/mm3 (0.0-0.4) 09/30/18 05:07 Baso # 0.1 K/mm3 (0.0-0.1) 09/30/18 05:07 Seg Neutrophils % 68.1 % (40.0-70.0) 09/30/18 05:07 Seg Neutrophils # 3.3 K/mm3 (1.8-7.7) 09/30/18 05:07 Sodium 138 mmol/L (137-145) 10/01/18 05:43 Potassium 4.5 mmol/L (3.6-5.0) 10/01/18 05:43 Chloride 96.0 mmol/L (98-107) L 10/01/18 05:43 Carbon Dioxide 25 mmol/L (22-30) 10/01/18 05:43 22 mmol/L 10/01/18 05:43 BUN 25 mg/dL (9-20) H 10/01/18 05:43 4.8 mg/dL (0.8-1.5) H 10/01/18 05:43 Estimated GFR 15 ml/min 10/01/18 05:43 5 % 10/01/18 05:43 Glucose 97 mg/dL (75-100) 10/01/18 05:43 POC Glucose 106 (70-105) H 10/03/18 08:29 4.8 % (4-6) 09/29/18 08:49 Lactic Acid 1.90 mmol/L (0.7-2.0) 09/29/18 11:50 Calcium 9.6 mg/dL (8.4-10.2) 10/01/18 05:43 0.40 mg/dL (0.1-1.2) 09/30/18 05:07 AST 21 units/L (5-40) 09/30/18 05:07 ALT < 5 units/L (7-56) L 09/30/18 05:07 48 units/L (35-129) 09/30/18 05:07 0.098 ng/mL (0.00-0.029) H 09/29/18 09:44 7.0 g/dL (6.3-8.2) 09/30/18 05:07 3.1 g/dL (3.9-5) L 09/30/18 05:07 0.8 % 09/30/18 05:07 TSH 6.680 mlU/mL (0.270-4.200) H 09/29/18 10:58 Yellow (Yellow) 09/29/18 11:13 Clear (Clear) 09/29/18 11:13 6.0 (5.0-7.0) 09/29/18 11:13 Ur Specific [place] 1.013 (1.003-1.030) 09/29/18 11:13 100 mg/dl mg/dL (Negative) 09/29/18 11:13 Neg mg/dL (Negative) 09/29/18 11:13 Neg mg/dL (Negative) 09/29/18 11:13 Sm (Negative) 09/29/18 11:13 Neg (Negative) 09/29/18 11:13 Neg (Negative) 09/29/18 11:13 < 2.0 mg/dL (<2.0) 09/29/18 11:13 Ur Leukocyte Esterase Neg (Negative) 09/29/18 11:13 1.0 /HPF (0.0-6.0) 09/29/18 11:13 13.0 /HPF (0.0-6.0) 09/29/18 11:13 U Epithel Cells (Auto) < 1.0 /HPF (0-13.0) 09/29/18 11:13 Few /HPF 09/29/18 11:13 Random Vancomycin 12.2 ug/mL (0-40.0) 10/01/18 08:34 Hepatitis A IgM Ab Non-reactive (NonReactive) 09/30/18 13:16 Hep Bs Antigen Non-reactive (Negative) 09/30/18 13:16 Hep B Core IgM Ab Non-reactive (NonReactive) 09/30/18 13:16 Non-reactive (NonReactive) 09/30/18 13:16 Active Medications - Current Medications Current Medications: Generic Name Dose Route Start Last Admin Trade Name Freq PRN Reason Stop Dose Admin Acetaminophen 650 mg 09/29/18 20:59 Tylenol PO Q4H PRN Pain MILD(1-3)/Fever >100.5/[place] Carbidopa/Levodopa 1 each 09/30/18 07:30 10/02/18 15:15 Sinemet PO 1 each TIDAC PORFIRIO Administration Clonazepam 0.5 mg 09/29/18 21:00 10/02/18 15:16 Klonopin PO 0.5 mg DAILY PORFIRIO Administration Epoetin Scott 10,000 unit 09/30/18 10:33 Procrit SUB-Q YAS PRN hemodialysis Heparin Sodium (Porcine) 5,000 unit 09/29/18 22:00 10/02/18 21:52 Heparin SUB-Q 5,000 unit Q12HR PORFIRIO Administration Heparin Sodium (Porcine) 2,000 unit 09/30/18 10:33 10/02/18 09:41 Heparin 10,000 Units/10 Ml IV 2,000 unit YAS PRN Administration hemodialysis Heparin Sodium (Porcine) 1,000 unit 09/30/18 10:33 10/02/18 09:47 Heparin 10,000 Units/10 Ml IV 1,000 unit YAS PRN Administration hemodialysis Sodium Chloride 100 mls @ 999 mls/hr 09/30/18 10:33 Nacl 0.9% IV YAS PRN Hypotension Azithromycin 500 mg/ Sodium 250 mls @ 250 mls/hr 09/30/18 16:00 10/01/18 16:37 Chloride IV 250 mls/hr Q24H PORFIRIO Administration Insulin Human Lispro 0 unit 09/30/18 07:30 10/02/18 21:50 Humalog SUB-Q Not Given ACHS REPLACED BY [facility] Protocol Levothyroxine Sodium 50 mcg 09/30/18 06:05 10/03/18 05:37 Synthroid PO 50 mcg QDAY@0600 PORFIRIO Administration Olanzapine 20 mg 09/29/18 20:45 10/02/18 15:16 Zyprexa PO 20 mg DAILY PORFIRIO Administration Polyethylene Glycol 17 gm 09/30/18 16:00 10/02/18 15:17 Miralax 3350 PO 17 gm QDAY PORFIRIO Administration Sodium Chloride 10 ml 09/29/18 22:00 10/03/18 04:25 Sodium Chloride Flush Syringe 10 Ml IV Not Given BID PORFIRIO Sodium Chloride 10 ml 09/29/18 20:59 Sodium Chloride Flush Syringe 10 Ml IV PRN PRN LINE FLUSH Tamsulosin HCl 0.4 mg 09/29/18 21:00 10/02/18 15:16 Flomax PO 0.4 mg DAILY PORFIRIO Administration
--- NOTE | 2018-10-03 10:11 | Progress Note ---
Assessment and Plan 1. ESRD: Continue hemodialysis three times a week, MWF schedule. 2. Hypotension: BP is better. Monitor. 3. Suspected sepsis: GPC in 1 out of 2 bottles. 4. Anemia: Epogen with HD. 5. DM type 2. 6. Parkinson's disease. 7. Dementia. Subjective Date of service: 10/03/18 Interval history: Patient was seen and examined at the bedside. Doing ok. Objective - Vital Signs Vital signs: Vital Signs - 12hr 10/02/18 10/02/18 10/03/18 23:00 23:57 01:11 Temperature 98.4 F 98.4 F Pulse Rate 110 H Respiratory 16 16 Rate Blood Pressure 69/35 110/65 Blood Pressure 69/35 [Right] O2 Sat by Pulse 97 Oximetry 10/03/18 10/03/18 10/03/18 04:00 04:49 08:27 Temperature 98.3 F 98.9 F 98.0 F Pulse Rate 106 H Respiratory 17 16 18 Rate Blood Pressure 117/75 134/91 Blood Pressure 117/75 [Right] O2 Sat by Pulse 100 Oximetry - General Appearance General appearance: well-developed, well-nourished, appears stated age, other (no distress) EENT: ATNC, PERRL, mucous membranes moist, vision intact Neck: supple Respiratory: Present: Clear to Ascultation Cardiology: regular, S1S2, no murmurs Gastrointestinal: normoactive bowel sounds, no tenderness, no distended Integumentary: no rash, warm and dry Neurologic: no focal deficit, no asterixis, confused, disoriented Musculoskeletal: other (no edema, L arm AVF) - Lab 10/01/18 05:43 10/01/18 05:43 Most recent lab results Calcium 9.6 mg/dL (8.4-10.2) 10/01/18 05:43 Medications & Allergies - Medications Allergies/Adverse Reactions: Allergies Penicillins Allergy (Verified 03/16/18 17:02) Unknown Home Medications: Home Medications Medication Instructions Recorded Confirmed Last Taken Type Tamsulosin [Flomax] 0.4 mg PO DAILY 01/21/15 09/29/18 02/07/15 History Carbidopa/Levodopa 10-100 [Sinemet] 1 each PO TIDAC 03/16/18 09/29/18 Unknown History Furosemide [Lasix] 20 mg PO QDAY 03/16/18 09/29/18 Unknown History ISOSORBIDE MONOnitrate [Imdur ER] 30 mg PO DAILY 03/16/18 09/29/18 Unknown History Hydroxyzine HCl [hydrOXYzine] 50 mg PO BID 09/29/18 09/29/18 Unknown History Levothyroxine [Synthroid] 25 mcg PO QDAY 09/29/18 09/29/18 Unknown History OLANZapine [Zyprexa] 20 mg PO DAILY 09/29/18 09/29/18 Unknown History clonazePAM [ Klonopin] 0.5 mg PO DAILY 09/29/18 09/29/18 Unknown History Active Medications: Generic Name Dose Route Start Last Admin Trade Name Freq PRN Reason Stop Dose Admin Acetaminophen 650 mg 09/29/18 20:59 Tylenol PO Q4H PRN Pain MILD(1-3)/Fever >100.5/[place] Carbidopa/Levodopa 1 each 09/30/18 07:30 10/02/18 15:15 Sinemet PO 1 each TIDAC PORFIRIO Administration Clonazepam 0.5 mg 09/29/18 21:00 10/02/18 15:16 Klonopin PO 0.5 mg DAILY PORFIRIO Administration Epoetin Scott 10,000 unit 09/30/18 10:33 Procrit SUB-Q YAS PRN hemodialysis Heparin Sodium (Porcine) 5,000 unit 09/29/18 22:00 10/02/18 21:52 Heparin SUB-Q 5,000 unit Q12HR PORFIRIO Administration Heparin Sodium (Porcine) 2,000 unit 09/30/18 10:33 10/02/18 09:41 Heparin 10,000 Units/10 Ml IV 2,000 unit YAS PRN Administration hemodialysis Heparin Sodium (Porcine) 1,000 unit 09/30/18 10:33 10/02/18 09:47 Heparin 10,000 Units/10 Ml IV 1,000 unit YAS PRN Administration hemodialysis Sodium Chloride 100 mls @ 999 mls/hr 09/30/18 10:33 Nacl 0.9% IV YAS PRN Hypotension Azithromycin 500 mg/ Sodium 250 mls @ 250 mls/hr 09/30/18 16:00 10/01/18 16:37 Chloride IV 250 mls/hr Q24H PORFIRIO Administration Insulin Human Lispro 0 unit 09/30/18 07:30 10/02/18 21:50 Humalog SUB-Q Not Given ACHS PORFIRIO Protocol Levothyroxine Sodium 50 mcg 09/30/18 06:05 10/03/18 05:37 Synthroid PO 50 mcg QDAY@0600 PORFIRIO Administration Olanzapine 20 mg 09/29/18 20:45 10/02/18 15:16 Zyprexa PO 20 mg DAILY PORFIRIO Administration Polyethylene Glycol 17 gm 09/30/18 16:00 10/02/18 15:17 Miralax 3350 PO 17 gm QDAY PORFIRIO Administration Sodium Chloride 10 ml 09/29/18 22:00 10/03/18 04:25 Sodium Chloride Flush Syringe 10 Ml IV Not Given BID PORFIRIO Sodium Chloride 10 ml 09/29/18 20:59 Sodium Chloride Flush Syringe 10 Ml IV PRN PRN LINE FLUSH Tamsulosin HCl 0.4 mg 09/29/18 21:00 10/02/18 15:16 Flomax PO 0.4 mg DAILY PORFIRIO Administration
[2018-10-03] MEDS: HumaLOG SUB-Q SCH ×4 (14:59→22:00)
[2018-10-03] MEDS: HEPARIN SUB-Q SCH ×2 (15:19→21:11)
[2018-10-03] MEDS: SINEMET PO SCH ×2 (15:20→17:28)
[2018-10-03] MEDS: FLOMAX PO SCH (17:01)
[2018-10-03] MEDS: MIRALAX 3350 PO SCH (17:01)
[2018-10-03] MEDS: ZITHROMAX 500 MG in NACL 0.9% 250ML 250 ML IV SCH ×2 (17:46→18:46)
[2018-10-04] MEDS: SYNTHROID PO SCH (06:00)
[2018-10-04] MEDS: HumaLOG SUB-Q SCH ×4 (09:50→23:48)
[2018-10-04] MEDS: SINEMET PO SCH ×5 (09:53→18:10)
[2018-10-04] MEDS: HEPARIN SUB-Q SCH ×2 (09:54→21:50)
[2018-10-04] MEDS: MIRALAX 3350 PO SCH (09:54)
[2018-10-04] MEDS: SODIUM CHLORIDE FLUSH SYRINGE 10 ML IV SCH ×2 (09:55→21:52)
[2018-10-04] MEDS: FLOMAX PO SCH (09:55)
--- NOTE | 2018-10-04 11:11 | Progress Note ---
Assessment and Plan Assessment and plan: Patient is a 68 yo man with from [facility] with history of ESRD on HD MWF, hypertension, DM type 2, Dementia, systolic heart failure, Schizophrenia and dyslipidemia who presented with AMS, lethargy and hypotension * CT abd/pelvis with contrast Impression: Prominent stool from cecum to rectum may reflect constipation * CT head without contrast Impression: no acute CVA, left frontal sinus may reflect acute sinusitis, chronic appearing lacunar infarcts right caudate head and left lateral basal ganglia, prior left orbital floor surgery, * pCXR unremarkable Hypotension, resolved; adjust with HD ESRD on HD: Nephrology consulted,input noted Hypothyroidism, worse: d/w Ms. Clemens associate agent insurance sales, and will increase the dose of Levothyroxine Constipation: give Miralax daily, add dulcolax suppository x 1 Acute metabolic encephalopathy Prelim GPC in clusters 1 out of 2 bottle: stop Aztreonam and start empiric give iv vancomycin which he received yesterday in ED. Acute sinusitis with SEPSIS, poa: added Azithromycin +iv vancomycin, PCN allergy Await blood culture results. I called Micro lab===>sending off cultures to [facility], should be back on Friday I called and updated caregiver Mariya Rose [phone] In restraints for safety Just waiting on [facility] to discharge History Interval history: Patient was seen and examined. Follow-up on current diagnosis of AMS. No overnight events reported to me. Imaging, nursing note, chart, labs and old chart reviewed. Discussed with caregiver over the phone and relative at bedside. Hospitalist Physical - Physical exam Narrative exam: Gen: WDWN, NAD, Awake, Alert, Orientated x 2 HEENT: NCAT, EOMI, PERRL, OP Clear Neck: supple, no adenopathy, no thyromegaly, no JVD CVS/Heart: RRR, normal S1S2, pulses present bilaterally Chest/Lungs: CTA B, Symmetrical chest expansion, good air entry bilaterally GI/Abdomen: soft, NTND, good bowel sounds, no guarding or rebound /Bladder: no suprapubic tenderness, no CVA or paraspinal tenderness Extermity/Skin: no c/c/e, no obvious rash MSK: FROM x 4 Neuro: CN 2-12 grossly intact, no new focal deficits Psych: calm - Constitutional Vitals: Temp Pulse Resp BP Pulse Ox 97.9 F 92 H 24 152/61 100 10/04/18 02:09 10/04/18 02:09 10/04/18 02:09 10/04/18 02:09 10/04/18 02:09 Results - Labs CBC & Chem 7: 10/01/18 05:43 10/01/18 05:43 Labs: Laboratory Last Values WBC 4.4 K/mm3 (4.5-11.0) L 10/01/18 05:43 RBC 3.53 M/mm3 (3.65-5.03) L 10/01/18 05:43 Hgb 10.0 gm/dl (11.8-15.2) L 10/01/18 05:43 Hct 31.0 % (35.5-45.6) L 10/01/18 05:43 MCV 88 fl (84-94) 10/01/18 05:43 MCH 28 pg (28-32) 10/01/18 05:43 MCHC 32 % (32-34) 10/01/18 05:43 RDW 15.4 % (13.2-15.2) H 10/01/18 05:43 Plt Count 168 K/mm3 (140-440) 10/01/18 05:43 Lymph % (Auto) 21.0 % (13.4-35.0) 09/30/18 05:07 [place] % (Auto) 8.5 % (0.0-7.3) H 09/30/18 05:07 Eos % (Auto) 1.2 % (0.0-4.3) 09/30/18 05:07 Baso % (Auto) 1.2 % (0.0-1.8) 09/30/18 05:07 Lymph # 1.0 K/mm3 (1.2-5.4) L 09/30/18 05:07 [place] # 0.4 K/mm3 (0.0-0.8) 09/30/18 05:07 Eos # 0.1 K/mm3 (0.0-0.4) 09/30/18 05:07 Baso # 0.1 K/mm3 (0.0-0.1) 09/30/18 05:07 Seg Neutrophils % 68.1 % (40.0-70.0) 09/30/18 05:07 Seg Neutrophils # 3.3 K/mm3 (1.8-7.7) 09/30/18 05:07 Sodium 138 mmol/L (137-145) 10/01/18 05:43 Potassium 4.5 mmol/L (3.6-5.0) 10/01/18 05:43 Chloride 96.0 mmol/L (98-107) L 10/01/18 05:43 Carbon Dioxide 25 mmol/L (22-30) 10/01/18 05:43 22 mmol/L 10/01/18 05:43 BUN 25 mg/dL (9-20) H 10/01/18 05:43 4.8 mg/dL (0.8-1.5) H 10/01/18 05:43 Estimated GFR 15 ml/min 10/01/18 05:43 5 % 10/01/18 05:43 Glucose 97 mg/dL (75-100) 10/01/18 05:43 POC Glucose 108 (70-105) H 10/04/18 09:32 4.8 % (4-6) 09/29/18 08:49 Lactic Acid 1.90 mmol/L (0.7-2.0) 09/29/18 11:50 Calcium 9.6 mg/dL (8.4-10.2) 10/01/18 05:43 0.40 mg/dL (0.1-1.2) 09/30/18 05:07 AST 21 units/L (5-40) 09/30/18 05:07 ALT < 5 units/L (7-56) L 09/30/18 05:07 48 units/L (35-129) 09/30/18 05:07 0.098 ng/mL (0.00-0.029) H 09/29/18 09:44 7.0 g/dL (6.3-8.2) 09/30/18 05:07 3.1 g/dL (3.9-5) L 09/30/18 05:07 0.8 % 09/30/18 05:07 TSH 6.680 mlU/mL (0.270-4.200) H 09/29/18 10:58 Yellow (Yellow) 09/29/18 11:13 Clear (Clear) 09/29/18 11:13 6.0 (5.0-7.0) 09/29/18 11:13 Ur Specific [place] 1.013 (1.003-1.030) 09/29/18 11:13 100 mg/dl mg/dL (Negative) 09/29/18 11:13 Neg mg/dL (Negative) 09/29/18 11:13 Neg mg/dL (Negative) 09/29/18 11:13 Sm (Negative) 09/29/18 11:13 Neg (Negative) 09/29/18 11:13 Neg (Negative) 09/29/18 11:13 < 2.0 mg/dL (<2.0) 09/29/18 11:13 Ur Leukocyte Esterase Neg (Negative) 09/29/18 11:13 1.0 /HPF (0.0-6.0) 09/29/18 11:13 13.0 /HPF (0.0-6.0) 09/29/18 11:13 U Epithel Cells (Auto) < 1.0 /HPF (0-13.0) 09/29/18 11:13 Few /HPF 09/29/18 11:13 Random Vancomycin 12.2 ug/mL (0-40.0) 10/01/18 08:34 Hepatitis A IgM Ab Non-reactive (NonReactive) 09/30/18 13:16 Hep Bs Antigen Non-reactive (Negative) 09/30/18 13:16 Hep B Core IgM Ab Non-reactive (NonReactive) 09/30/18 13:16 Non-reactive (NonReactive) 09/30/18 13:16 Active Medications - Current Medications Current Medications: Generic Name Dose Route Start Last Admin Trade Name Freq PRN Reason Stop Dose Admin Acetaminophen 650 mg 09/29/18 20:59 Tylenol PO Q4H PRN Pain MILD(1-3)/Fever >100.5/[place] Carbidopa/Levodopa 1 each 09/30/18 07:30 10/04/18 10:08 Sinemet PO 1 each TIDAC PORFIRIO Administration Clonazepam 0.5 mg 09/29/18 21:00 10/04/18 09:55 Klonopin PO 0.5 mg DAILY PORFIRIO Administration Epoetin [place] 10,000 unit 09/30/18 10:33 Procrit SUB-Q YAS PRN hemodialysis Heparin Sodium (Porcine) 5,000 unit 09/29/18 22:00 10/04/18 09:54 Heparin SUB-Q 5,000 unit Q12HR PORFIRIO Administration Heparin Sodium (Porcine) 2,000 unit 09/30/18 10:33 10/02/18 09:41 Heparin 10,000 Units/10 Ml IV 2,000 unit YAS PRN Administration hemodialysis Heparin Sodium (Porcine) 1,000 unit 09/30/18 10:33 10/02/18 09:47 Heparin 10,000 Units/10 Ml IV 1,000 unit YAS PRN Administration hemodialysis Sodium Chloride 100 mls @ 999 mls/hr 09/30/18 10:33 Nacl 0.9% IV YAS PRN Hypotension Azithromycin 500 mg/ Sodium 250 mls @ 250 mls/hr 09/30/18 16:00 10/03/18 18:46 Chloride IV Not Given Q24H [facility] Insulin Human Lispro 0 unit 09/30/18 07:30 10/04/18 09:50 Humalog SUB-Q Not Given ACHS [facility] Protocol Levothyroxine Sodium 50 mcg 09/30/18 06:05 10/04/18 06:00 Synthroid PO 50 mcg QDAY@0600 PORFIRIO Administration Olanzapine 20 mg 09/29/18 20:45 10/04/18 10:55 Zyprexa PO 20 mg DAILY PORFIRIO Administration Polyethylene Glycol 17 gm 09/30/18 16:00 10/04/18 09:54 Miralax 3350 PO 17 gm QDAY PORFIRIO Administration Sodium Chloride 10 ml 09/29/18 22:00 10/04/18 09:55 Sodium Chloride Flush Syringe 10 Ml IV 10 ml BID PORFIRIO Administration Sodium Chloride 10 ml 09/29/18 20:59 Sodium Chloride Flush Syringe 10 Ml IV PRN PRN LINE FLUSH Tamsulosin HCl 0.4 mg 09/29/18 21:00 10/04/18 09:55 Flomax PO 0.4 mg DAILY PORFIRIO Administration
--- NOTE | 2018-10-04 12:03 | Progress Note ---
Assessment and Plan 1. ESRD: Continue hemodialysis three times a week, MWF schedule. 2. Hypotension: BP is better. Monitor. 3. Suspected sepsis: GPC in 1 out of 2 bottles. 4. Anemia: Epogen with HD. 5. DM type 2. 6. Parkinson's disease. 7. Dementia. Subjective Date of service: 10/04/18 Interval history: Patient was seen and examined at the bedside. Objective - Vital Signs Vital signs: Vital Signs - 12hr 10/04/18 02:09 Temperature 97.9 F Pulse Rate 92 H Respiratory 24 Rate Blood Pressure 152/61 O2 Sat by Pulse 100 Oximetry - General Appearance General appearance: well-developed, well-nourished, appears stated age, other ( no distress, on restrains) EENT: ATNC, PERRL, hearing intact Neck: supple Respiratory: Present: Clear to Ascultation Cardiology: regular, S1S2, no murmurs Gastrointestinal: normoactive bowel sounds, no tenderness, no distended Integumentary: no rash Neurologic: confused, disoriented Musculoskeletal: other (no edema, L arm AVF) - Lab 10/01/18 05:43 10/01/18 05:43 Most recent lab results Calcium 9.6 mg/dL (8.4-10.2) 10/01/18 05:43 Medications & Allergies - Medications Allergies/Adverse Reactions: Allergies Penicillins Allergy (Verified 03/16/18 17:02) Unknown Home Medications: Home Medications Medication Instructions Recorded Confirmed Last Taken Type Tamsulosin [Flomax] 0.4 mg PO DAILY 01/21/15 09/29/18 02/07/15 History Carbidopa/Levodopa 10-100 [Sinemet] 1 each PO TIDAC 03/16/18 09/29/18 Unknown History Furosemide [Lasix] 20 mg PO QDAY 03/16/18 09/29/18 Unknown History ISOSORBIDE MONOnitrate [Imdur ER] 30 mg PO DAILY 03/16/18 09/29/18 Unknown History Hydroxyzine HCl [hydrOXYzine] 50 mg PO BID 09/29/18 09/29/18 Unknown History Levothyroxine [Synthroid] 25 mcg PO QDAY 09/29/18 09/29/18 Unknown History OLANZapine [Zyprexa] 20 mg PO DAILY 09/29/18 09/29/18 Unknown History clonazePAM [ Klonopin] 0.5 mg PO DAILY 09/29/18 09/29/18 Unknown History Active Medications: Generic Name Dose Route Start Last Admin Trade Name Louise PRN Reason Stop Dose Admin Acetaminophen 650 mg 09/29/18 20:59 Tylenol PO Q4H PRN Pain MILD(1-3)/Fever >100.5/[place] Carbidopa/Levodopa 1 each 09/30/18 07:30 10/04/18 10:08 Sinemet PO 1 each TIDAC PORFIRIO Administration Clonazepam 0.5 mg 09/29/18 21:00 10/04/18 09:55 Klonopin PO 0.5 mg DAILY PORFIRIO Administration Epoetin [place] 10,000 unit 09/30/18 10:33 Procrit SUB-Q YAS PRN hemodialysis Heparin Sodium (Porcine) 5,000 unit 09/29/18 22:00 10/04/18 09:54 Heparin SUB-Q 5,000 unit Q12HR PORFIRIO Administration Heparin Sodium (Porcine) 2,000 unit 09/30/18 10:33 10/02/18 09:41 Heparin 10,000 Units/10 Ml IV 2,000 unit YAS PRN Administration hemodialysis Heparin Sodium (Porcine) 1,000 unit 09/30/18 10:33 10/02/18 09:47 Heparin 10,000 Units/10 Ml IV 1,000 unit YAS PRN Administration hemodialysis Sodium Chloride 100 mls @ 999 mls/hr 09/30/18 10:33 Nacl 0.9% IV YAS PRN Hypotension Azithromycin 500 mg/ Sodium 250 mls @ 250 mls/hr 09/30/18 16:00 10/03/18 18:46 Chloride IV Not Given Q24H [facility] Insulin Human Lispro 0 unit 09/30/18 07:30 10/04/18 09:50 Humalog SUB-Q Not Given ACHS [facility] Protocol Levothyroxine Sodium 50 mcg 09/30/18 06:05 10/04/18 06:00 Synthroid PO 50 mcg QDAY@0600 PORFIRIO Administration Olanzapine 20 mg 09/29/18 20:45 10/04/18 10:55 Zyprexa PO 20 mg DAILY PORFIRIO Administration Polyethylene Glycol 17 gm 09/30/18 16:00 10/04/18 09:54 Miralax 3350 PO 17 gm QDAY PORFIRIO Administration Sodium Chloride 10 ml 09/29/18 22:00 10/04/18 09:55 Sodium Chloride Flush Syringe 10 Ml IV 10 ml BID PORFIRIO Administration Sodium Chloride 10 ml 09/29/18 20:59 Sodium Chloride Flush Syringe 10 Ml IV PRN PRN LINE FLUSH Tamsulosin HCl 0.4 mg 09/29/18 21:00 10/04/18 09:55 Flomax PO 0.4 mg DAILY PORFIRIO Administration
[2018-10-04] MEDS: ZITHROMAX 500 MG in NACL 0.9% 250ML 250 ML IV SCH (18:11)
[2018-10-05] MEDS: SYNTHROID PO SCH (05:25)
[2018-10-05] MEDS: HumaLOG SUB-Q SCH ×4 (08:11→22:54)
[2018-10-05] MEDS: SINEMET PO SCH ×3 (08:17→16:50)
--- NOTE | 2018-10-05 09:23 | Progress Note ---
Assessment and Plan Assessment and plan: Patient is a 68 yo man with from [facility] with history of ESRD on HD MWF, hypertension, DM type 2, Dementia, systolic heart failure, Schizophrenia and dyslipidemia who presented to [facility] with AMS, lethargy and hypotension. * CT abd/pelvis with contrast Impression: Prominent stool from cecum to rectum may reflect constipation * CT head without contrast Impression: no acute CVA, left frontal sinus may reflect acute sinusitis, chronic appearing lacunar infarcts right caudate head and left lateral basal ganglia, prior left orbital floor surgery, * pCXR unremarkable Hypotension, resolved; adjust with HD Acute sinusitis with SEPSIS, poa: added Azithromycin +iv vancomycin, PCN allergy ESRD on HD: Nephrology consulted,input noted Hypothyroidism, worse: d/w sister Carolina at bedside who called Ms. Meraz, restoration ecologist, and then Levothyroxine was increased, recheck TSH outpatient Constipation: given Miralax daily and dulcolax suppository x 1 Acute metabolic encephalopathy Prelim Blood culture growing GPC in clusters 1 out of 2 bottle: stop Aztreonam and start empiric give iv vancomycin which he received yesterday in ED. Await blood culture results. I called [facility] lab===>sending off cultures to [facility], should be back on Friday, I called [facility] today and spoke with Adrienne. I called and updated caregiver Mariya Rose [phone] In restraints for safety Just waiting on Micro[facility] to come back in order to discharge, still on iv vancomycin History Interval history: Patient was seen and examined. Follow-up on current diagnosis of AMS. No overnight events reported to me. Imaging, nursing note, chart, labs and old chart reviewed. Hospitalist Physical - Physical exam Narrative exam: Gen: WDWN, NAD, Awake, Alert, Orientated x 2 HEENT: NCAT, EOMI, PERRL, OP Clear Neck: supple, no adenopathy, no thyromegaly, no JVD CVS/Heart: RRR, normal S1S2, pulses present bilaterally Chest/Lungs: CTA B, Symmetrical chest expansion, good air entry bilaterally GI/Abdomen: soft, NTND, good bowel sounds, no guarding or rebound /Bladder: no suprapubic tenderness, no CVA or paraspinal tenderness Extermity/Skin: no c/c/e, no obvious rash MSK: FROM x 4 Neuro: CN 2-12 grossly intact, no new focal deficits Psych: calm - Constitutional Vitals: Temp Pulse Resp BP Pulse Ox 98.0 F 96 H 18 149/92 96 10/05/18 07:31 10/05/18 07:31 10/05/18 07:31 10/05/18 07:31 10/05/18 07:31 Results - Labs CBC & Chem 7: 10/01/18 05:43 10/01/18 05:43 Labs: Laboratory Last Values WBC 4.4 K/mm3 (4.5-11.0) L 10/01/18 05:43 RBC 3.53 M/mm3 (3.65-5.03) L 10/01/18 05:43 Hgb 10.0 gm/dl (11.8-15.2) L 10/01/18 05:43 Hct 31.0 % (35.5-45.6) L 10/01/18 05:43 MCV 88 fl (84-94) 10/01/18 05:43 MCH 28 pg (28-32) 10/01/18 05:43 MCHC 32 % (32-34) 10/01/18 05:43 RDW 15.4 % (13.2-15.2) H 10/01/18 05:43 Plt Count 168 K/mm3 (140-440) 10/01/18 05:43 Lymph % (Auto) 21.0 % (13.4-35.0) 09/30/18 05:07 [place] % (Auto) 8.5 % (0.0-7.3) H 09/30/18 05:07 Eos % (Auto) 1.2 % (0.0-4.3) 09/30/18 05:07 Baso % (Auto) 1.2 % (0.0-1.8) 09/30/18 05:07 Lymph # 1.0 K/mm3 (1.2-5.4) L 09/30/18 05:07 [place] # 0.4 K/mm3 (0.0-0.8) 09/30/18 05:07 Eos # 0.1 K/mm3 (0.0-0.4) 09/30/18 05:07 Baso # 0.1 K/mm3 (0.0-0.1) 09/30/18 05:07 Seg Neutrophils % 68.1 % (40.0-70.0) 09/30/18 05:07 Seg Neutrophils # 3.3 K/mm3 (1.8-7.7) 09/30/18 05:07 Sodium 138 mmol/L (137-145) 10/01/18 05:43 Potassium 4.5 mmol/L (3.6-5.0) 10/01/18 05:43 Chloride 96.0 mmol/L (98-107) L 10/01/18 05:43 Carbon Dioxide 25 mmol/L (22-30) 10/01/18 05:43 22 mmol/L 10/01/18 05:43 BUN 25 mg/dL (9-20) H 10/01/18 05:43 4.8 mg/dL (0.8-1.5) H 10/01/18 05:43 Estimated GFR 15 ml/min 10/01/18 05:43 5 % 10/01/18 05:43 Glucose 97 mg/dL (75-100) 10/01/18 05:43 POC Glucose 98 (70-105) 10/05/18 07:46 4.8 % (4-6) 09/29/18 08:49 Lactic Acid 1.90 mmol/L (0.7-2.0) 09/29/18 11:50 Calcium 9.6 mg/dL (8.4-10.2) 10/01/18 05:43 0.40 mg/dL (0.1-1.2) 09/30/18 05:07 AST 21 units/L (5-40) 09/30/18 05:07 ALT < 5 units/L (7-56) L 09/30/18 05:07 48 units/L (35-129) 09/30/18 05:07 0.098 ng/mL (0.00-0.029) H 09/29/18 09:44 7.0 g/dL (6.3-8.2) 09/30/18 05:07 3.1 g/dL (3.9-5) L 09/30/18 05:07 0.8 % 09/30/18 05:07 TSH 6.680 mlU/mL (0.270-4.200) H 09/29/18 10:58 Yellow (Yellow) 09/29/18 11:13 Clear (Clear) 09/29/18 11:13 6.0 (5.0-7.0) 09/29/18 11:13 Ur Specific Morgan 1.013 (1.003-1.030) 09/29/18 11:13 100 mg/dl mg/dL (Negative) 09/29/18 11:13 Neg mg/dL (Negative) 09/29/18 11:13 Neg mg/dL (Negative) 09/29/18 11:13 Sm (Negative) 09/29/18 11:13 Neg (Negative) 09/29/18 11:13 Neg (Negative) 09/29/18 11:13 < 2.0 mg/dL (<2.0) 09/29/18 11:13 Ur Leukocyte Esterase Neg (Negative) 09/29/18 11:13 1.0 /HPF (0.0-6.0) 09/29/18 11:13 13.0 /HPF (0.0-6.0) 09/29/18 11:13 U Epithel Cells (Auto) < 1.0 /HPF (0-13.0) 09/29/18 11:13 Few /HPF 09/29/18 11:13 Random Vancomycin 15.5 ug/mL (0-40.0) 10/04/18 10:27 Hepatitis A IgM Ab Non-reactive (NonReactive) 09/30/18 13:16 Hep Bs Antigen Non-reactive (Negative) 09/30/18 13:16 Hep B Core IgM Ab Non-reactive (NonReactive) 09/30/18 13:16 Non-reactive (NonReactive) 09/30/18 13:16 Active Medications - Current Medications Current Medications: Generic Name Dose Route Start Last Admin Trade Name Freq PRN Reason Stop Dose Admin Acetaminophen 650 mg 09/29/18 20:59 Tylenol PO Q4H PRN Pain MILD(1-3)/Fever >100.5/[place] Carbidopa/Levodopa 1 each 09/30/18 07:30 10/05/18 08:17 Sinemet PO 1 each TIDAC PORFIRIO Administration Clonazepam 0.5 mg 09/29/18 21:00 10/04/18 09:55 Klonopin PO 0.5 mg DAILY PORFIRIO Administration Epoetin Scott 10,000 unit 09/30/18 10:33 Procrit SUB-Q YAS PRN hemodialysis Heparin Sodium (Porcine) 5,000 unit 09/29/18 22:00 10/04/18 21:50 Heparin SUB-Q 5,000 unit Q12HR PORFIRIO Administration Heparin Sodium (Porcine) 2,000 unit 09/30/18 10:33 10/02/18 09:41 Heparin 10,000 Units/10 Ml IV 2,000 unit YAS PRN Administration hemodialysis Heparin Sodium (Porcine) 1,000 unit 09/30/18 10:33 10/02/18 09:47 Heparin 10,000 Units/10 Ml IV 1,000 unit YAS PRN Administration hemodialysis Sodium Chloride 100 mls @ 999 mls/hr 09/30/18 10:33 Nacl 0.9% IV YAS PRN Hypotension Azithromycin 500 mg/ Sodium 250 mls @ 250 mls/hr 09/30/18 16:00 10/04/18 18:11 Chloride IV 250 mls/hr Q24H PORFIRIO Administration Vancomycin HCl 1 gm in 250 mls @ 167.007 mls/hr 10/05/18 18:00 Vancomycin/Ns 1 Gm/250 Ml IV [id number] [facility] Insulin Human Lispro 0 unit 09/30/18 07:30 10/05/18 08:11 Humalog SUB-Q Not Given ACHS [facility] Protocol Levothyroxine Sodium 50 mcg 09/30/18 06:05 10/05/18 05:25 Synthroid PO 50 mcg QDAY@0600 PORFIRIO Administration Olanzapine 20 mg 09/29/18 20:45 10/04/18 10:55 Zyprexa PO 20 mg DAILY PORFIRIO Administration Polyethylene Glycol 17 gm 09/30/18 16:00 10/04/18 09:54 Miralax 3350 PO 17 gm QDAY PORFIRIO Administration Sodium Chloride 10 ml 09/29/18 22:00 10/04/18 21:52 Sodium Chloride Flush Syringe 10 Ml IV 10 ml BID PORFIRIO Administration Sodium Chloride 10 ml 09/29/18 20:59 Sodium Chloride Flush Syringe 10 Ml IV PRN PRN LINE FLUSH Tamsulosin HCl 0.4 mg 09/29/18 21:00 10/04/18 09:55 Flomax PO 0.4 mg DAILY PORFIRIO Administration
[2018-10-05] MEDS: HEPARIN SUB-Q SCH ×2 (09:37→21:25)
[2018-10-05] MEDS: FLOMAX PO SCH (09:37)
[2018-10-05] MEDS: MIRALAX 3350 PO SCH (09:37)
[2018-10-05] MEDS: SODIUM CHLORIDE FLUSH SYRINGE 10 ML IV SCH ×2 (09:38→21:25)
--- NOTE | 2018-10-05 09:57 | Progress Note ---
Assessment and Plan 1. ESRD: Continue hemodialysis three times a week, MWF schedule. HD today. 2. Hypotension: BP is better. Monitor. 3. Suspected sepsis: GPC in 1 out of 2 bottles. 4. Anemia: Epogen with HD. 5. DM type 2. 6. Parkinson's disease. 7. Dementia. Subjective Date of service: 10/05/18 Interval history: Patient was seen and examined at the bedside. Objective - Vital Signs Vital signs: Vital Signs - 12hr 10/04/18 10/05/18 10/05/18 22:00 00:31 00:32 Temperature 98.3 F Pulse Rate 63 93 H Pulse Rate [ 82 Apical] Respiratory 20 Rate Blood Pressure 130/82 O2 Sat by Pulse 69 L 96 Oximetry 10/05/18 07:31 Temperature 98.0 F Pulse Rate 96 H Pulse Rate [ Apical] Respiratory 18 Rate Blood Pressure 149/92 O2 Sat by Pulse 96 Oximetry - General Appearance General appearance: well-developed, well-nourished, appears stated age, other (no distress, on restrains) EENT: ATNC, PERRL, hearing intact Neck: supple Respiratory: Present: Clear to Ascultation Cardiology: regular, S1S2, no murmurs Gastrointestinal: normoactive bowel sounds, no tenderness, no distended Integumentary: no rash, warm and dry Neurologic: no focal deficit, no asterixis, confused, disoriented Musculoskeletal: other (no edema) - Lab 10/01/18 05:43 10/01/18 05:43 Most recent lab results Calcium 9.6 mg/dL (8.4-10.2) 10/01/18 05:43 Medications & Allergies - Medications Allergies/Adverse Reactions: Allergies Penicillins Allergy (Verified 03/16/18 17:02) Unknown Home Medications: Home Medications Medication Instructions Recorded Confirmed Last Taken Type Tamsulosin [Flomax] 0.4 mg PO DAILY 01/21/15 09/29/18 02/07/15 History Carbidopa/Levodopa 10-100 [Sinemet] 1 each PO TIDAC 03/16/18 09/29/18 Unknown History Furosemide [Lasix] 20 mg PO QDAY 03/16/18 09/29/18 Unknown History ISOSORBIDE MONOnitrate [Imdur ER] 30 mg PO DAILY 03/16/18 09/29/18 Unknown History Hydroxyzine HCl [hydrOXYzine] 50 mg PO BID 09/29/18 09/29/18 Unknown History Levothyroxine [Synthroid] 25 mcg PO QDAY 09/29/18 09/29/18 Unknown History OLANZapine [Zyprexa] 20 mg PO DAILY 09/29/18 09/29/18 Unknown History clonazePAM [ Klonopin] 0.5 mg PO DAILY 09/29/18 09/29/18 Unknown History Active Medications: Generic Name Dose Route Start Last Admin Trade Name Freq PRN Reason Stop Dose Admin Acetaminophen 650 mg 09/29/18 20:59 Tylenol PO Q4H PRN Pain MILD(1-3)/Fever >100.5/[place] Carbidopa/Levodopa 1 each 09/30/18 07:30 10/05/18 08:17 Sinemet PO 1 each TIDAC PORFIRIO Administration Clonazepam 0.5 mg 09/29/18 21:00 10/05/18 09:37 Klonopin PO 0.5 mg DAILY PORFIRIO Administration Epoetin Scott 10,000 unit 09/30/18 10:33 Procrit SUB-Q YAS PRN hemodialysis Heparin Sodium (Porcine) 5,000 unit 09/29/18 22:00 10/05/18 09:37 Heparin SUB-Q 5,000 unit Q12HR PORFIRIO Administration Heparin Sodium (Porcine) 2,000 unit 09/30/18 10:33 10/02/18 09:41 Heparin 10,000 Units/10 Ml IV 2,000 unit YAS PRN Administration hemodialysis Heparin Sodium (Porcine) 1,000 unit 09/30/18 10:33 10/02/18 09:47 Heparin 10,000 Units/10 Ml IV 1,000 unit YAS PRN Administration hemodialysis Sodium Chloride 100 mls @ 999 mls/hr 09/30/18 10:33 Nacl 0.9% IV YAS PRN Hypotension Azithromycin 500 mg/ Sodium 250 mls @ 250 mls/hr 09/30/18 16:00 10/04/18 18:11 Chloride IV 250 mls/hr Q24H PORFIRIO Administration Vancomycin HCl 1 gm in 250 mls @ 167.007 mls/hr 10/05/18 18:00 Vancomycin/Ns 1 Gm/250 Ml IV [id number] [facility] Insulin Human Lispro 0 unit 09/30/18 07:30 10/05/18 08:11 Humalog SUB-Q Not Given ACHS PORFIRIO Protocol Levothyroxine Sodium 50 mcg 09/30/18 06:05 10/05/18 05:25 Synthroid PO 50 mcg QDAY@0600 PORFIRIO Administration Olanzapine 20 mg 09/29/18 20:45 10/04/18 10:55 Zyprexa PO 20 mg DAILY PORFIRIO Administration Polyethylene Glycol 17 gm 09/30/18 16:00 10/05/18 09:37 Miralax 3350 PO 17 gm QDAY PORFIRIO Administration Sodium Chloride 10 ml 09/29/18 22:00 10/05/18 09:38 Sodium Chloride Flush Syringe 10 Ml IV 10 ml BID PORFIRIO Administration Sodium Chloride 10 ml 09/29/18 20:59 Sodium Chloride Flush Syringe 10 Ml IV PRN PRN LINE FLUSH Tamsulosin HCl 0.4 mg 09/29/18 21:00 10/05/18 09:37 Flomax PO 0.4 mg DAILY PORFIRIO Administration
[2018-10-05] MEDS: ZITHROMAX 500 MG in NACL 0.9% 250ML 250 ML IV SCH (16:38)
[2018-10-05] MEDS ORDERED: NACL 0.9 (PRIMING MACHINE ONLY DIALYSIS) MC ONE ×2 (17:41→17:42)
[2018-10-05] MEDS ORDERED: VANCOMYCIN/NS 1 GM/250 ML 1 GM/250 ML BAG IV SCH (18:00)
[2018-10-05] MEDS ORDERED: VANCOMYCIN/NS 1 GM/250 ML 1 GM/250 ML BAG IV ONE (20:00)
[2018-10-06] MEDS: SYNTHROID PO SCH (05:31)
[2018-10-06 06:17] LABS: Hematocrit 30.4 % (35.5-45.6); Hemoglobin 9.8 gm/dl (11.8-15.2); Mean Corpuscular HGB Conc 32 % (32-34); Mean Corpuscular Volume 87 fl (84-94); Platelet Count 218 K/mm3 (140-440); Red Blood Count 3.51 M/mm3 (3.65-5.03); Red Cell Distribution Width 15.4 % (13.2-15.2)
[2018-10-06 06:44] LABS: Calcium 9.6 mg/dL (8.4-10.2)
[2018-10-06] MEDS: HumaLOG SUB-Q SCH ×2 (08:03→12:04)
[2018-10-06] MEDS: SINEMET PO SCH ×2 (08:30→12:05)
--- NOTE | 2018-10-06 08:59 | Discharge Summary ---
Providers - Providers Date of Admission: 09/29/18 11:47 Attending physician: DESTINY ESPINOSA MD 09/29/18 13:22 Consult to Physician [CONS] Stat Comment: Consulting Provider: CHYNA CAMACHO Physician Instructions: Reason For Exam: ESRD 10/05/18 15:04 Physical Therapy Evaluation and Treat [CONS] Routine Comment: Reason For Exam: Unsteady Gait Primary care physician: RAY PEREIRA Hospitalization Reason for admission: hypotension Condition: Stable Hospital course: Patient is a 68 yo man with from [facility] with history of ESRD on HD MWF, hypertension, DM type 2, Dementia, systolic heart failure, Schizophrenia and dyslipidemia who presented to [facility] with AMS, lethargy and hypotension. * CT abd/pelvis with contrast Impression: Prominent stool from cecum to rectum may reflect constipation * CT head without contrast Impression: no acute CVA, left frontal sinus may reflect acute sinusitis, chronic appearing lacunar infarcts right caudate head and left lateral basal ganglia, prior left orbital floor surgery, * pCXR unremarkable * In the ED it was felt that his symptoms was a combination of Polypharmacy, sepsis vs medication, but appears to be secondary to sepsis and treated as noted below * During hospitalization, patient continued to tolerate HD, with adjustment made, he was noted to have sepsis secondary to acute sinusitis , was treated with Abx Azithromycin +iv vancomycin, PCN allergy * There was adjustment of Thyroid meds for her hypothyrodisim and recommended recheck of TSH in a few weeks this was discussed with childcare attendant * Prelim Blood culture growing GPC in clusters 1 out of 2 bottle: stop Aztreonam and start empiric give iv vancomycin which he received yesterday in ED this was sent to [facility] as our machine could not ID the organism. * Lasix was discontinued, patient will continue on dialysis * [facility] on follow up, unable to identify the organism, Patient was treated with IV vancomyin. It appears the bacteria is likely a contaminant Await blood culture results. I called Micro lab===>sending off cultures to [facility], should be back on FridayAdrienne. I called and updated caregiver Mariya Rose [phone] In restraints for safety Sepsis Acute sinusitis with SEPSIS, poa Acute metabolic encephalopathy Hypotension, resolved ESRD on HD Hypothyroidism, Constipation: Disposition: TO HOME OR SELFCARE Time spent for discharge: 35 mins Core Measure Documentation - Palliative Care Palliative Care/ Comfort Measures: Not Applicable - Core Measures Any of the following diagnoses?: none Exam - Physical Exam Narrative exam: Narrative exam: Gen: WDWN, NAD, Awake, Alert, Orientated x 2 HEENT: NCAT, EOMI, PERRL, OP Clear Neck: supple, no adenopathy, no thyromegaly, no JVD CVS/Heart: RRR, normal S1S2, pulses present bilaterally Chest/Lungs: CTA B, Symmetrical chest expansion, good air entry bilaterally GI/Abdomen: soft, NTND, good bowel sounds, no guarding or rebound /Bladder: no suprapubic tenderness, no CVA or paraspinal tenderness Extermity/Skin: no c/c/e, no obvious rash except AV graft in the left upper ext MSK: FROM x 4 Neuro: CN 2-12 grossly intact, no new focal deficits Psych: calm - Constitutional Vitals: Temp Pulse Resp BP Pulse Ox 98.7 F 113 H 18 152/89 99 10/06/18 07:14 10/06/18 07:14 10/06/18 07:14 10/06/18 07:14 10/06/18 07:14 Plan Activity: advance as tolerated, fall precautions Diet: renal Special Instructions: record daily weights, record daily BP diary Follow up with: RAY PEREIRA MD [Primary Care Provider] - 3-5 Days CHYNA CAMACHO MD [Staff Physician] - 7 Days Prescriptions: Doxycycline Hyclate [Doxycycline Hyclate TAB] 100 mg PO Q12HR #10 tab Polyethylene Glycol 3350 [Miralax 3350] 17 gm PO QDAY #30 [employer]pack Levothyroxine [Synthroid] 50 mcg PO QDAY@0600 #30 tablet
[2018-10-06] MEDS: MIRALAX 3350 PO SCH (09:54)
[2018-10-06] MEDS: HEPARIN SUB-Q SCH (09:54)
[2018-10-06] MEDS: FLOMAX PO SCH (09:54)
[2018-10-06] MEDS: SODIUM CHLORIDE FLUSH SYRINGE 10 ML IV SCH (09:55)
[2018-10-06 13:55] VITALS: BP 101/60
== END 2018-10-06 14:50 | disposition home or self-care (01) | DRG 871 ==
LOC: ED 08:32 → 4A 11:47 → 2B-ACE 10-03 13:28
PROVIDERS: ADMIT Internal Medicine; ATTEND Internal Medicine
PROC: 5A1D70Z Performance of Urinary Filtration, Intermittent, Less than 6 Hours Per Day (ICD-10-PCS; principal; 2018-09-30)
PROC: 5A1D70Z Performance of Urinary Filtration, Intermittent, Less than 6 Hours Per Day (ICD-10-PCS; 2018-10-02)
PROC: 5A1D70Z Performance of Urinary Filtration, Intermittent, Less than 6 Hours Per Day (ICD-10-PCS; 2018-10-05)
DX: A41.9 Sepsis, unspecified organism (principal); G93.41 Metabolic encephalopathy; N18.6 End stage renal disease; I13.2 Hypertensive heart and chronic kidney disease with heart failure and with stage 5 chronic kidney disease, or end stage renal disease; I50.20 Unspecified systolic (congestive) heart failure; Z99.2 Dependence on renal dialysis; D64.9 Anemia, unspecified; J01.90 Acute sinusitis, unspecified; E11.22 Type 2 diabetes mellitus with diabetic chronic kidney disease; Z88.0 Allergy status to penicillin; F03.90 Unspecified dementia, unspecified severity, without behavioral disturbance, psychotic disturbance, mood disturbance, and anxiety; F20.9 Schizophrenia, unspecified; E78.5 Hyperlipidemia, unspecified; Z79.82 Long term (current) use of aspirin; Z79.84 Long term (current) use of oral hypoglycemic drugs; F32.9 Major depressive disorder, single episode, unspecified; F41.9 Anxiety disorder, unspecified; G20 Parkinson's disease; K59.00 Constipation, unspecified; E03.9 Hypothyroidism, unspecified
CPT/HCPCS: 36415; 70450; 71045; 74176; 80048; 80053; 80074; 80202; 81001; 82140; 82962; 83036; 84443; 84484; 85025; 85027; 87040; 93005; 93010; G0378; J0456; J0885; J1644; J1815; J2310; J3370; J7030; J7040; J7050